=== PATIENT | male | born 1945 ===

== ENCOUNTER 2018-05-22 11:03 | Inpatient (IN) | payer MEDICARE, OTHER ==
[2018-05-22 11:14] VITALS: BMI 29.9
--- NOTE | 2018-05-22 12:05 | ED PDOC ---
Lower Extremity Pain/Injury Time Seen by Provider: 05/22/18 11:21 Chief Complaint (Nursing): Lower Extremity Problem/Injury Chief Complaint (Provider): Right Leg Swelling History Per: Patient History/Exam Limitations: no limitations Onset/Duration Of Symptoms: Other (months) Current Symptoms Are (Timing): Still Present Additional Complaint(s): 72 y/o male with a PMHx of CAD, aortic aneurysm valve repair, a-fib (pacemaker) , and chronic heart failure presenting for evaluation of right leg swelling ongoing for months. Patient states she was sent here by Dr. Verde, who saw him in his office, due to very severe swelling to the right lower extremity and concern for DVT. Patient states that in addition to the swelling, he has had limited exercise capability and is only able to walk short distances before becoming short of breath. He denies any chest pain, fever, or cough. Past Medical History Reviewed: Historical Data, Nursing Documentation, Vital Signs Vital Signs: Last Vital Signs Temp 97.7 F 05/22/18 11:16 Pulse 93 H 05/22/18 11:16 Resp 17 05/22/18 11:16 BP 153/101 H 05/22/18 11:16 Pulse Ox 98 05/22/18 11:16 - Medical History PMH: Atrial Fibrillation, Cardia Arrhythmia, COPD, HTN (aortic valve replacement and pacemaker on warfarin), Peripheral Edema, Sleep Apnea (use CPAP at home) Denies: Chronic Kidney Disease Other PMH: Atrial fibrillation, Chronic heart failure - Surgical History Surgical History: CABG (2010), Hernia Repair, Pacemaker - Family History Family History: States: Unknown Family Hx - Home Medications Home Medications: Ambulatory Orders Medication Instructions Recorded Alprazolam [Xanax] 0.5 mg PO TID PRN 06/27/16 Cyanocobalamin [Vitamin B12 1000 1,000 mcg PO DAILY 06/27/16 mcg Tab] Cyanocobalamin [Vitamin B12 1000 1,000 mcg IM Q30D 06/27/16 mcg/ml Inj] Finasteride 5 mg PO HS 06/27/16 Lactulose [Generlac] 30 ml PO TID 06/27/16 Potassium Chloride [Klor-Con M20] 60 meq PO DAILY 06/27/16 Brimonidine Tartrate/Timolol 1 drop BOTHEYES BID 05/22/18 [Combigan 0.2%-0.5% Eye Drops] Folic Acid 0.4 mg PO BID 05/22/18 Iron,Carbonyl [Iron Chews] 25 mg PO DAILY 05/22/18 Potassium Chloride [Klor-Con M20] 40 meq PO HS 05/22/18 Apixaban [Eliquis] 5 mg PO BID #30 tab 05/30/18 Apixaban [Eliquis] 5 mg PO BID #60 tablet 05/30/18 Bimatoprost [Lumigan] 1 drop EACHEYE HS #1 bottle 05/30/18 Brimonidine 0.2% [Alphagan 0.2% 1 drop OU BID #1 bottle 05/30/18 Opht] Cholecalciferol [Vitamin D 1000 IU] 2,000 unit PO DAILY #30 tab 05/30/18 Finasteride [Proscar] 5 mg PO HS #30 tab 05/30/18 Linaclotide [Linzess] 145 mcg PO PRN PRN #30 capsule 05/30/18 Losartan [Cozaar] 100 mg PO DAILY #30 tab 05/30/18 Metoprolol Succinate 50 mg PO BID #60 tab.er.24h 05/30/18 Minoxidil 5 mg PO BID #60 tab 05/30/18 Montelukast [Singulair] 10 mg PO HS #30 tab 05/30/18 Triamterene/Hydrochlorothiazid 2 each PO DAILY #60 capsule 05/30/18 [Triamterene-Hctz 37.5-25 mg Cp] metFORMIN [glucOPHAGE] 500 mg PO BID #60 tab 05/30/18 - Allergies Allergies/Adverse Reactions: Allergies Allergy/AdvReac Type Severity Reaction Status Date / Time No Known Allergies Allergy Verified 08/29/14 17:03 Review of Systems ROS Statement: Except As Marked, All Systems Reviewed And Found Negative Constitutional: Negative for: Fever Cardiovascular: Negative for: Chest Pain Respiratory: Positive for: SOB with Exertion. Negative for: Cough Musculoskeletal: Positive for: Other (right leg swelling) Physical Exam - Reviewed Nursing Documentation Reviewed: Yes Vital Signs Reviewed: Yes - Physical Exam Appears: Positive for: Non-toxic, No Acute Distress (while sitting) Head Exam: Positive for: ATRAUMATIC, NORMAL INSPECTION, NORMOCEPHALIC Skin: Positive for: Normal Color, Warm, Dry. Negative for: Rash Eye Exam: Positive for: EOMI, Normal appearance, PERRL Neck: Positive for: Normal, Painless ROM, Supple Cardiovascular/Chest: Positive for: Regular Rate, Rhythm (pacemaker) Respiratory: Positive for: Crackles (bilateral) Gastrointestinal/Abdominal: Positive for: Normal Exam, Soft. Negative for: Tenderness Back: Positive for: Normal Inspection. Negative for: L CVA Tenderness, R CVA Tenderness, Vertebral Tenderness Extremity: Positive for: Swelling (RLE markedly more swelling than left, very tense to touch, pitting edema; LLE with pitting edema but not as grossly enlarged as left) Neurologic/Psych: Positive for: Alert, Oriented. Negative for: Motor/Sensory Deficits - Laboratory Results Result Diagrams: 05/30/18 10:06 05/30/18 10:06 - ECG O2 Sat by Pulse Oximetry: 98 (RA) Pulse Ox Interpretation: Normal Medical Decision Making Medical Decision Makin:33 Impression: RLE extremity swelling, r/o DVT vs chronic edema. History of SOB, r/ o CHF. Plan: -EKG -BNP -CMP -Troponin I -CBC w/ differential -CXR -IV Insertion -US Duplex LE -Reevaluation Scribe Attestation: Documented by Roland Camarena, acting as a scribe for Yvonne Escobar MD. Provider Scribe Attestation: All medical record entries made by the Scribe were at my direction and personally dictated by me. I have reviewed the chart and agree that the record accurately reflects my personal performance of the history, physical exam, medical decision making, and the department course for this patient. I have also personally directed, reviewed, and agree with the discharge instructions and disposition. Disposition - Clinical Impression Clinical Impression: SHIPLEY (dyspnea on exertion), Uncontrolled hypertension, Pulmonary embolism - Patient ED Disposition Is Patient to be Admitted: Transfer of Care - Disposition Disposition: Transfer of Care Disposition Time: 17:00 Condition: FAIR Patient Signed Over To: Margot Melo
[2018-05-22 12:11] LABS: BASO % 0.6 % (0.0-2.0); EOS % 0.9 % (0.0-4.0); HEMOGLOBIN 10.1 g/dL (12.0-18.0); LYMPH # 1.1 K/uL (1.0-4.3); LYMPH % 24.1 % (20.0-40.0); MEAN CELL VOLUME 89.6 fl (80.0-94.0); MEAN CORPUSCULAR HEMOGLOBIN 29.4 pg (27.0-31.0); MEAN CORPUSCULAR HGB CONC 32.8 g/dL (33.0-37.0); MONO # 0.5 K/uL (0.0-0.8); MONO % 10.4 % (0.0-10.0); NEUT # 2.9 K/uL (1.8-7.0); NRBC % 0.2 % (0.0-0.0); RBC 3.42 Mil/uL (4.40-5.90); RED CELL DISTRIBUTION WIDTH 16.4 % (11.5-14.5); WHITE BLOOD COUNT 4.5 K/uL (4.8-10.8)
--- NOTE | 2018-05-22 12:24 | RAD ---
Date of service: 05/22/2018 HISTORY: shortness of breath COMPARISON: 11/02/2017 TECHNIQUE: Chest PA and lateral FINDINGS: LUNGS: Similar asymmetric elevation right hemidiaphragm. No interval pulmonary pathology seen PLEURA: No significant pleural effusion identified. No pneumothorax apparent. CARDIOVASCULAR: Mild cardiomegaly. Tortuous/ ectatic thoracic aorta. Duallead pacemaker leads position to unchanged. OSSEOUS STRUCTURES: Midline sternotomy VISUALIZED UPPER ABDOMEN: Normal. OTHER FINDINGS: None. IMPRESSION: No interval pathology noted. Mild cardiomegaly as before Similar asymmetric elevation right hemidiaphragm.
[2018-05-22 12:26] LABS: ALB/GLOB RATIO 1.2 (1.0-2.1); ALBUMIN 4.1 g/dL (3.5-5.0); ALT/SGPT 28 U/L (21-72); AST/SGOT 29 U/L (17-59); BLOOD UREA NITROGEN 17 mg/dl (9-20); GFR AFRICAN-AMERICAN > 60; GFR NON-AFRICAN AMERICAN > 60
[2018-05-22 12:28] LABS: B-TYPE NATRIURETIC PEPTIDE 2630 pg/ml (0-900)
--- NOTE | 2018-05-22 17:18 | ED PDOC ---
- Laboratory Results Result Diagrams: 05/22/18 12:00 05/22/18 12:00 - ECG O2 Sat by Pulse Oximetry: 98 (RA) Medical Decision Making Medical Decision Makin:00 Patient endorsed to me from Dr. Escobar. Pending blood pressure control. Scribe Attestation: Documented by Obie Castrejon acting as a scribe for Margot Melo MD. Provider Scribe Attestation: All medical record entries made by the Scribe were at my direction and personally dictated by me. I have reviewed the chart and agree that the record accurately reflects my personal performance of the history, physical exam, medical decision making, and the department course for this patient. I have also personally directed, reviewed, and agree with the discharge instructions and disposition. Disposition - Clinical Impression Clinical Impression: SHIPLEY (dyspnea on exertion), Uncontrolled hypertension - POA Present On Arrival: None - Disposition Disposition: Admitted as In-Patient Disposition Time: 17:42 Condition: STABLE Forms: [employer] (Vietnamese)
--- NOTE | 2018-05-22 17:51 | US ---
Date of service: 05/22/2018 PROCEDURE: Bilateral lower extremity venous duplex Doppler. HISTORY: leg swelling R>>L. COMPARISON: Comparison made with prior right lower extremity 10/11/15. TECHNIQUE: Bilateral common femoral, superficial femoral, popliteal and posterior tibial veins were evaluated. Flow was assessed with color Doppler, compressibility, assessment of phasic flow and augmentation response. FINDINGS: COMMON FEMORAL VEIN: Right CFV: Unremarkable. Left CFV: Unremarkable. SUPERFICIAL FEMORAL VEIN: Right SFV: Unremarkable. Left SFV: Unremarkable. POPLITEAL VEIN: Right Popliteal: Unremarkable. Left Popliteal: Unremarkable. POSTERIOR TIBIAL VEIN: Right PTV: Unremarkable. Left PTV: Unremarkable. OTHER FINDINGS: Note is also made of a small approximately 4.9 x 2.2 x 3.7 cm fluid collection with internal debris consistent with a popliteal cyst . Small right inguinal lymph node measuring 2.6 x 0.81 cm IMPRESSION: No evidence of deep venous thrombosis seen within the visualized deep veins of the right or left lower extremities. . In addition, there is a right popliteal cyst as above
[2018-05-22] MEDS ORDERED: Sodium Chloride 0.9% 50 ML IV ONE (19:38)
[2018-05-22] MEDS ORDERED: Iodixanol 320 MG/ML 100 ML BOTTLE IV ONE (19:38)
[2018-05-22] MEDS ORDERED: Potassium Chloride 20 mEq ER Tab PO SCH (19:45)
--- NOTE | 2018-05-22 20:25 | CP.PCM.HP ---
<Laura Easton - Last Filed: 05/23/18 05:05> History of Present Illness - History of Present Illness History of Present Illness: 72 y/o M with extensive cardiac history including HTN, CAD, Aortic aneurysm valve repair, Afib ( on warfarin 7.5 mg PO daily), S/P cardiac ablation, Pacemaker, Sleep apnea using CPAP machine at home, presents to ED sent by Ortho specialist for evaluation of RLE edema, and r/o DVT. Patient went to see Ortho, Dr. Verde, because he has been under conservative treatment of Right Knee OA (no good candidate for Knee replacement), and was sent to ED to r/o DVT. In ED patient was complaining of dyspnea on exertion, however states this has been his baseline dyspnea for almost one year, mentioned that he has to stop around 5 times in 1 block because his SOB. Denies chest pain, blurry vision , dizziness, syncope episodes, N/V, diaphoresis or other associated symptoms. Has a close f/u with his engineering inspection assistant ( Dr. Jef Hylton), and reports his engineering inspection assistant did an Echo last month. PCP: Dr. Calix Cardiology: Dr. Jef Hylton ED course -VS: significant for elevated BP Tx: Lasix 40 mg IV once, triamterene 100 mg PO once, clonidine 0.2 mg po once, clonidine 0.1 mg PO once Present on Admission - Present on Admission Any Indicators Present on Admission: Yes History of DVT/PE: No History of Uncontrolled Diabetes: No Urinary Catheter: No Decubitus Ulcer Present: No Review of Systems - Review of Systems All systems: reviewed and no additional remarkable complaints except (as per HPI ) Past Patient History - Past Medical History & Family History Past Medical History?: Yes - Past Social History Smoking Status: Former Smoker - CARDIAC Hx Atrial Fibrillation: Yes Hx Cardia Arrhythmia: Yes Hx Hypertension: Yes (aortic valve replacement and pacemaker on warfarin) Hx Pacemaker: Yes Hx Peripheral Edema: Yes - PULMONARY Hx Chronic Obstructive Pulmonary Disease (COPD): Yes Hx Sleep Apnea: Yes (use CPAP at home) - NEUROLOGICAL Hx Neurological Disorder: No - HEENT Hx Cataracts: Yes - RENAL Hx Chronic Kidney Disease: No - ENDOCRINE/METABOLIC Hx Endocrine Disorders: No - HEMATOLOGICAL/ONCOLOGICAL Hx Blood Disorders: No - INTEGUMENTARY Hx Dermatological Problems: No - MUSCULOSKELETAL/RHEUMATOLOGICAL Hx Musculoskeletal Disorders: No Hx Falls: No - GASTROINTESTINAL Hx Gastrointestinal Disorders: No - GENITOURINARY/GYNECOLOGICAL Hx Prostate Problems: Yes (BPH) - PSYCHIATRIC Hx Psychophysiologic Disorder: No Hx Substance Use: No - SURGICAL HISTORY Hx Coronary Artery Bypass Graft: Yes (2010) - ANESTHESIA Hx Anesthesia: Yes Hx Anesthesia Reactions: No Hx Malignant Hyperthermia: No Meds Allergies/Adverse Reactions: Allergies Allergy/AdvReac Type Severity Reaction Status Date / Time No Known Allergies Allergy Verified 08/29/14 17:03 Physical Exam - Constitutional Appears: Non-toxic, No Acute Distress - Head Exam Head Exam: ATRAUMATIC, NORMOCEPHALIC - Eye Exam Eye Exam: EOMI, Normal appearance. absent: Conjunctival injection Pupil Exam: PERRL - ENT Exam ENT Exam: Mucous Membranes Moist - Respiratory Exam Respiratory Exam: Decreased Breath Sounds (bilateral), NORMAL BREATHING PATTERN. absent: Rales, Rhonchi, Wheezes - Cardiovascular Exam Cardiovascular Exam: Irregular Rhythm, +S1, +S2 - GI/Abdominal Exam GI & Abdominal Exam: Normal Bowel Sounds, Soft. absent: Distended, Guarding, Rebound, Rigid, Tenderness - Extremities Exam Extremities exam: Positive for: pedal edema (Right >left). Negative for: calf tenderness - Back Exam Back exam: NORMAL INSPECTION. absent: CVA tenderness (L), CVA tenderness (R) - Neurological Exam Neurological exam: Alert, Oriented x3 - Skin Skin Exam: Dry, Intact, Normal Color, Warm Results - Vital Signs Recent Vital Signs: Last Vital Signs Temp 97.7 F 05/22/18 11:16 Pulse 79 05/22/18 19:27 Resp 20 05/22/18 19:27 BP 134/88 05/22/18 19:27 Pulse Ox 100 05/22/18 19:27 - Labs Result Diagrams: 05/22/18 12:00 05/22/18 12:00 Labs: Laboratory Results - last 24 hr 05/22/18 05/22/18 12:00 12:00 WBC 4.5 L RBC 3.42 L Hgb 10.1 L Hct 30.6 L MCV 89.6 MCH 29.4 MCHC 32.8 L RDW 16.4 H Plt Count 134 MPV 10.0 Neut % (Auto) 64.0 Lymph % (Auto) 24.1 [place] % (Auto) 10.4 H Eos % (Auto) 0.9 Baso % (Auto) 0.6 Neut # (Auto) 2.9 Lymph # (Auto) 1.1 [place] # (Auto) 0.5 Eos # (Auto) 0.0 Baso # (Auto) 0.0 Sodium 143 Potassium 4.1 Chloride 101 Carbon Dioxide 31 H Anion Gap 15 BUN 17 Creatinine 0.9 Est GFR ( Amer) > 60 Est GFR (Non-Af Amer) > 60 Random Glucose 140 H Calcium 9.0 Total Bilirubin 1.2 AST 29 ALT 28 Alkaline Phosphatase 106 Troponin I < 0.0120 NT-Pro-B Natriuret Pep 2630 H Total Protein 7.7 Albumin 4.1 Globulin 3.6 Albumin/Globulin Ratio 1.2 Assessment & Plan - Assessment and Plan (Free Text) Assessment: 72 y/o M with extensive cardiac history including HTN, CAD, Aortic aneurysm valve repair, Afib ( on warfarin 7.5 mg PO daily), S/P cardiac ablation, Pacemaker, Sleep apnea admitted with SHIPLEY to r/o ACS and/or PE. Plan: Dyspnea -Telemetry -cont monitoring and evaluation advisor -r/o ACS, PE -EKG: sinus rhythm with PVC -f/u EKG in AM -troponin I x 1 neg -f/u troponin I x 2 -CXR reported as mild cardiomegaly -Chest CT angio done in ER, f/u results -Bilateral LE Dupplex US reported as no evidence of DVT -call Pulmunology and/or Cardiology if needed. Recommendations will be appreciated -patient reports he had an "Echo" ordered by his Cardio 1 month ago. States he is very adherent with medications and Cardio's appointments. A fib -controlled -c/w home meds -on warfarin 7.5 mg PO daily -f/u INR HTN -uncontrolled on admission, but improving -S/P Lasix 40 mg IV once, triamterene 100 mg PO once, clonidine 0.2 mg po once, clonidine 0.1 mg PO once in ER -will resume home meds -unclear current medication regimen at home. We need to confirm with his pharmacy. [facility] at [address] [place] [address]. As per patient he takes Diovan 160 mg BID, Metoprolol. But unclear if he takes Hctz. Reports Triamterene was discontinued by Cardio. Takes Potasium 40 meq BID? -f/u BP DVT prophylaxis on warfarin f/u INR SCDs - Date & Time Date: 05/22/18 Time: 18:00 <Juliocesar Calix - Last Filed: 05/24/18 06:55> Results - Vital Signs Recent Vital Signs: Last Vital Signs Temp 97.7 F 05/24/18 05:10 Pulse 85 05/24/18 05:10 Resp 18 05/24/18 05:10 BP 153/89 H 05/24/18 05:10 Pulse Ox 96 05/24/18 05:10 - Labs Result Diagrams: 05/24/18 05:25 05/24/18 05:25 Labs: Laboratory Results - last 24 hr 05/23/18 05/23/18 05/23/18 08:00 14:04 20:09 WBC RBC Hgb Hct MCV MCH MCHC RDW Plt Count APTT 163.3 H* D 92.9 H D 69.7 H D Sodium Potassium Chloride Carbon Dioxide Anion Gap BUN Creatinine Est GFR ( Amer) Est GFR (Non-Af Amer) Random Glucose Calcium Total Bilirubin AST ALT Alkaline Phosphatase Total Protein Albumin Globulin Albumin/Globulin Ratio 05/24/18 05/24/18 05/24/18 03:00 05:25 05:25 WBC 4.2 L RBC 3.50 L Hgb 10.3 L Hct 31.7 L MCV 90.5 MCH 29.5 MCHC 32.6 L RDW 16.6 H Plt Count 134 APTT 71.5 H Sodium 141 Potassium 3.2 L Chloride 98 Carbon Dioxide 33 H Anion Gap 13 BUN 12 Creatinine 0.8 Est GFR ( Amer) > 60 Est GFR (Non-Af Amer) > 60 Random Glucose 89 Calcium 8.7 Total Bilirubin 1.1 AST 31 ALT 28 Alkaline Phosphatase 104 Total Protein 7.5 Albumin 3.9 Globulin 3.6 Albumin/Globulin Ratio 1.1 Attending/Attestation - Attestation I have personally seen and examined this patient.: Yes I have fully participated in the care of the patient.: Yes I have reviewed all pertinent clinical information: Yes
[2018-05-22 21:16] LABS: INR 3.2 (0.9-1.2); PARTIAL THROMBOPLASTIN TIME 44.2 Seconds (25.6-37.1); PROTHROMBIN TIME 36.5 Seconds (9.8-13.1)
[2018-05-22] MEDS ORDERED: Phytonadione 10 mg/ml Inj (Adult) IVPB STA (21:34)
[2018-05-22] MEDS ORDERED: Phytonadione 10 MG in Sodium Chloride 0.9% 50 ML IV ONE (22:00)
[2018-05-22] MEDS: Latanoprost 0.005% Opht SOUTION OU SCH (23:22)
[2018-05-22] MEDS: Brimonidine 0.2% 50 DROP/5 ML BOTTLE OU SCH (23:26)
[2018-05-23 05:43] LABS: BASO % 0.8 % (0.0-2.0); EOS % 1.4 % (0.0-4.0); HEMOGLOBIN 9.1 g/dL (12.0-18.0); LYMPH # 1.1 K/uL (1.0-4.3); LYMPH % 29.9 % (20.0-40.0); MEAN CELL VOLUME 88.9 fl (80.0-94.0); MEAN CORPUSCULAR HEMOGLOBIN 29.7 pg (27.0-31.0); MEAN CORPUSCULAR HGB CONC 33.4 g/dL (33.0-37.0); MONO # 0.4 K/uL (0.0-0.8); MONO % 10.4 % (0.0-10.0); NEUT # 2.1 K/uL (1.8-7.0); NEUT % 57.5 % (50.0-75.0); RBC 3.06 Mil/uL (4.40-5.90); RED CELL DISTRIBUTION WIDTH 16.3 % (11.5-14.5); WHITE BLOOD COUNT 3.6 K/uL (4.8-10.8)
[2018-05-23 05:56] LABS: BLOOD UREA NITROGEN 14 mg/dl (9-20); CALCIUM 8.1 mg/dL (8.4-10.2); GFR AFRICAN-AMERICAN > 60; GFR NON-AFRICAN AMERICAN > 60
[2018-05-23 06:11] LABS: INR 2.6 (0.9-1.2); PROTHROMBIN TIME 28.8 Seconds (9.8-13.1)
[2018-05-23] MEDS ORDERED: HYDROCHLOROTHIAZID PO SCH (09:00)
[2018-05-23] MEDS ORDERED: Lactulose 10 gm/15 ml Syrup PO SCH (09:00)
[2018-05-23] MEDS ORDERED: Potassium Chloride 20 mEq ER Tab PO SCH ×2 (09:00→22:00)
[2018-05-23] MEDS ORDERED: FOLIC ACID 0.4 MG PO SCH (09:00)
[2018-05-23] MEDS ORDERED: IRON CARBONYL PO SCH (09:00)
[2018-05-23] MEDS ORDERED: Cholecalciferol 1,000 INTLU TAB PO SCH (09:00)
[2018-05-23] MEDS ORDERED: TRIAMTERENE PO SCH (09:00)
[2018-05-23] MEDS: Brimonidine 0.2% 50 DROP/5 ML BOTTLE OU SCH ×2 (09:30→17:51)
[2018-05-23] MEDS: hydroCHLOROthiazide-Triamterene 25 mg-37.5 mg Cap UD PO SCH (09:31)
[2018-05-23] MEDS: Cholecalciferol 1,000 INTLU TAB PO SCH (09:31)
[2018-05-23] MEDS: Metoprolol Succinate 50 mg XL Tab PO SCH ×2 (09:33→18:06)
--- NOTE | 2018-05-23 09:42 | CP.PCM.CON ---
History of Present Illness - History of Present Illness History of Present Illness: Pt is a 72 yo male with pmh of HTN, Cad, Aortic aneurysm valve repair, Afib ( on warfarin 7.5 mg Po daily), cardaic ablation, pacemaker, sleep apnea using CPAP machine at home was sent to ED from is ortho specialist due to swelling of Right lower leg to R/O PE. Pt state that he normally get edema bilateral leg, Right more than left and its been happening for more than a year. He also state that he get SOB and dyspnea every time he walk, and need to stop 5 time before in 1 block walk. Pt is a former smoker quiet 30 years ago. Pt denies having fever, vomit, nausea, headache, dizziness, chest pain, abd pain, diarrhea, polyuria, dysuria. on the ED pt was complainin of dyspnea but state that this is his baseline. B/L edema was notice mostly on the Right leg. Pt had no fever, chill, blurry vision , syncope episode, N/V, diaphoresis or other associated symptoms. PCP: Dr. Calix Pt seen and examined on bed site with pt was laying comfortable in bed with no acute distress. Pt denies feeling SOB but he state he only get it when he walk and he havent walked anywere since he got to the hospital. Denies any fever, headache, n/v chest pain, abdominal pain, any lump, diarrhea, constipation or any other symptoms. Vitals : Vitals WNL CT: Right lower PE noticed, 6mm nodle noticed on lower branch of R lung, Pulm HTN dubler: no acute finding chest Xray: no new finding except for cardiomegaly which have been seen in before. Review of Systems - Review of Systems All systems: reviewed and no additional remarkable complaints except - Constitutional Constitutional: Sleep Apnea - Cardiovascular Cardiovascular: Dyspnea, Dyspnea on Exertion. absent: Chest Pain, Syncope - Respiratory Respiratory: Dyspnea. absent: Hemoptysis, Wheezing, Chest Congestion - Gastrointestinal Gastrointestinal: absent: Change in Stool Character, Diarrhea - Genitourinary Genitourinary: absent: Dysuria, Flank Pain, Hematuria - Musculoskeletal Musculoskeletal: Joint Swelling. absent: Numbness, Tingling Past Patient History - Past Medical History & Family History Past Medical History?: Yes - Past Social History Smoking Status: Former Smoker - CARDIAC Hx Atrial Fibrillation: Yes Hx Cardia Arrhythmia: Yes Hx Hypertension: Yes (aortic valve replacement and pacemaker on warfarin) Hx Pacemaker: Yes Hx Peripheral Edema: Yes - PULMONARY Hx Chronic Obstructive Pulmonary Disease (COPD): Yes Hx Sleep Apnea: Yes (use CPAP at home) - NEUROLOGICAL Hx Neurological Disorder: No - HEENT Hx Cataracts: Yes - RENAL Hx Chronic Kidney Disease: No - ENDOCRINE/METABOLIC Hx Endocrine Disorders: No - HEMATOLOGICAL/ONCOLOGICAL Hx Blood Disorders: No - INTEGUMENTARY Hx Dermatological Problems: No - MUSCULOSKELETAL/RHEUMATOLOGICAL Hx Musculoskeletal Disorders: No Hx Falls: No - GASTROINTESTINAL Hx Gastrointestinal Disorders: No - GENITOURINARY/GYNECOLOGICAL Hx Prostate Problems: Yes (BPH) - PSYCHIATRIC Hx Psychophysiologic Disorder: No Hx Substance Use: No - SURGICAL HISTORY Hx Coronary Artery Bypass Graft: Yes (2010) - ANESTHESIA Hx Anesthesia: Yes Hx Anesthesia Reactions: No Hx Malignant Hyperthermia: No Meds Allergies/Adverse Reactions: Allergies Allergy/AdvReac Type Severity Reaction Status Date / Time No Known Allergies Allergy Verified 08/29/14 17:03 - Medications Medications: Current Medications Alprazolam (Xanax) 0.5 mg PO TID PRN PRN Reason: Anxiety Brimonidine Tartrate (Alphagan 0.2% Opht) 1 drop OU BID [facility] Last Admin: 05/23/18 09:30 Dose: 1 drop Cholecalciferol (Vitamin D) 2,000 intlu PO DAILY [facility] Last Admin: 05/23/18 09:31 Dose: 2,000 intlu Finasteride (Proscar) 5 mg PO HS [facility] Last Admin: 05/22/18 23:26 Dose: 5 mg Home Med (Linaclotide [Linzess]) 145 mcg PO DAILY PRN PRN Reason: Constipation Home Med (Folic Acid [Folic Acid]) 0.4 mg PO BID [facility] Home Med (Iron,Carbonyl [Iron Chews]) 25 mg PO DAILY [facility] Heparin Sodium/Dextrose (Heparin 25,000 Units/250ml In D5w) 25,000 units in 250 mls @ 18 mls/hr IV .[id number] [facility]; Per Protocol PRN Reason: Protocol Last Admin: 05/23/18 00:00 Dose: 18 mls/hr Lactulose (Enulose) 20 gm PO BID [facility] Last Admin: 05/23/18 09:32 Dose: Not Given Latanoprost (Xalatan Opht) [address] [facility] Last Admin: 05/22/18 23:22 Dose: 1 drop Metoprolol Succinate (Toprol Xl) 50 mg PO BID [facility] Last Admin: 05/23/18 09:33 Dose: 50 mg Minoxidil (Minoxidil) 5 mg PO BID [facility] Last Admin: 05/23/18 09:33 Dose: 5 mg Montelukast Sodium (Singulair) 10 mg PO HS [facility] Potassium Chloride (K-Dur 20 Meq Er Tab) 40 meq PO HS [facility] Timolol Maleate (Timoptic 0.5% Ophth Soln) 1 drop OU BID [facility] Last Admin: 05/23/18 09:33 Dose: 1 tona Triamterene/HCTZ (Dyazide 25 Mg-37.5 Mg) 2 cap PO DAILY [facility] Last Admin: 05/23/18 09:31 Dose: 2 cap Valsartan (Diovan) 160 mg PO BID [facility] Last Admin: 05/23/18 09:30 Dose: 160 mg Physical Exam - Constitutional Appears: Well, Non-toxic, No Acute Distress - Head Exam Head Exam: ATRAUMATIC, NORMAL INSPECTION, NORMOCEPHALIC - Eye Exam Eye Exam: EOMI, Normal appearance, PERRL Pupil Exam: NORMAL ACCOMODATION, PERRL - ENT Exam ENT Exam: Mucous Membranes Moist, Normal Exam - Neck Exam Neck exam: Positive for: Normal Inspection - Respiratory Exam Respiratory Exam: Decreased Breath Sounds, NORMAL BREATHING PATTERN. absent: Rales, Rhonchi, Wheezes - Cardiovascular Exam Cardiovascular Exam: REGULAR RHYTHM, +S1, +S2 - GI/Abdominal Exam GI & Abdominal Exam: Normal Bowel Sounds - Extremities Exam Extremities exam: Positive for: pedal edema. Negative for: tenderness - Back Exam Back exam: NORMAL INSPECTION - Neurological Exam Neurological exam: Alert, Oriented x3 - Psychiatric Exam Psychiatric exam: Normal Affect, Normal Mood - Skin Skin Exam: Dry, Intact, Normal Color, Warm Results - Vital Signs Recent Vital Signs: Last Vital Signs Temp 97.4 F L 05/23/18 08:18 Pulse 82 05/23/18 09:33 Resp 20 05/23/18 08:18 BP 132/82 05/23/18 09:33 Pulse Ox 97 05/23/18 08:18 - Labs Result Diagrams: 05/23/18 05:00 05/23/18 05:00 Labs: Laboratory Results - last 24 hr 05/22/18 05/22/18 05/22/18 12:00 12:00 20:50 WBC 4.5 L RBC 3.42 L Hgb 10.1 L Hct 30.6 L MCV 89.6 MCH 29.4 MCHC 32.8 L RDW 16.4 H Plt Count 134 MPV 10.0 Neut % (Auto) 64.0 Lymph % (Auto) 24.1 Dent % (Auto) 10.4 H Eos % (Auto) 0.9 Baso % (Auto) 0.6 Neut # (Auto) 2.9 Lymph # (Auto) 1.1 Dent # (Auto) 0.5 Eos # (Auto) 0.0 Baso # (Auto) 0.0 PT 36.5 H INR 3.2 H APTT 44.2 H Sodium 143 Potassium 4.1 Chloride 101 Carbon Dioxide 31 H Anion Gap 15 BUN 17 Creatinine 0.9 Est GFR ( Amer) > 60 Est GFR (Non-Af Amer) > 60 Random Glucose 140 H Calcium 9.0 Total Bilirubin 1.2 AST 29 ALT 28 Alkaline Phosphatase 106 Troponin I < 0.0120 NT-Pro-B Natriuret Pep 2630 H Total Protein 7.7 Albumin 4.1 Globulin 3.6 Albumin/Globulin Ratio 1.2 05/23/18 05/23/18 05/23/18 05:00 05:00 05:00 WBC 3.6 L RBC 3.06 L Hgb 9.1 L Hct 27.2 L MCV 88.9 MCH 29.7 MCHC 33.4 RDW 16.3 H Plt Count 116 L MPV 10.0 Neut % (Auto) 57.5 Lymph % (Auto) 29.9 Dent % (Auto) 10.4 H Eos % (Auto) 1.4 Baso % (Auto) 0.8 Neut # (Auto) 2.1 Lymph # (Auto) 1.1 Dent # (Auto) 0.4 Eos # (Auto) 0.0 Baso # (Auto) 0.0 PT 28.8 H D INR 2.6 H D APTT Sodium 141 Potassium 3.3 L Chloride 102 Carbon Dioxide 31 H Anion Gap 11 BUN 14 Creatinine 0.7 L Est GFR ( Amer) > 60 Est GFR (Non-Af Amer) > 60 Random Glucose 85 Calcium 8.1 L Total Bilirubin AST ALT Alkaline Phosphatase Troponin I < 0.0120 NT-Pro-B Natriuret Pep Total Protein Albumin Globulin Albumin/Globulin Ratio 05/23/18 08:00 WBC RBC Hgb Hct MCV MCH MCHC RDW Plt Count MPV Neut % (Auto) Lymph % (Auto) Dent % (Auto) Eos % (Auto) Baso % (Auto) Neut # (Auto) Lymph # (Auto) Dent # (Auto) Eos # (Auto) Baso # (Auto) PT INR APTT 163.3 H* D Sodium Potassium Chloride Carbon Dioxide Anion Gap BUN Creatinine Est GFR ( Amer) Est GFR (Non-Af Amer) Random Glucose Calcium Total Bilirubin AST ALT Alkaline Phosphatase Troponin I NT-Pro-B Natriuret Pep Total Protein Albumin Globulin Albumin/Globulin Ratio Assessment & Plan (1) Pulmonary embolism Assessment and Plan: Pt is 72 yo male with positive finidng of Right lower lube Embolism Plan Continue Heparin F/U vitals Status: Acute (2) COPD (chronic obstructive pulmonary disease) Assessment and Plan: Pt is a 72 yo male with PMH of chronic smoke use. Pt Physical exam :diminished lung sound and prolonged expiratory phase PLan Duoneb INh PRN Status: Chronic Priority: Low (3) A-fib Assessment and Plan: Pt is a 72 yo m with A-fib on warfarin 7.[address] diagnosed [address] PE with CT scan Plan Continue Heparin at the moment Would recommend Hemeonc consult Status: Chronic
[2018-05-23] MEDS ORDERED: Albuterol-Ipratrop 3 mg / 0.5 (3 ml) UD INH PRN (11:00)
--- NOTE | 2018-05-23 11:16 | CP.PCM.CON ---
History of Present Illness - History of Present Illness History of Present Illness: THE PATIENT IS A 72 YEAR OLD MALE WHO HAS A HISTORY OF CAD, ATRIAL FIBRILLATION WITH AN ABLATION PROCEDURE, AORTIC ANEURYSM REPAIR INCLUDING AN AVR, SSS WITH A DUAL CHAMBER PACEMAKER, COPD, TYPE 2 DM, ARTHRITIS AND ANEMIA. HE WAS [facility]ICE YESTER[facility] FOR KNEE OA AND HE WAS NOTED TO HAVE SWELLING OT THE RLE SO HE WAS SENT TO THE ER FOR EVALUATION. HE ALSO HAS CHRONIC SEVERE SHIPLEY. LOWER EXTREMITY VENOUS DOPPLER STUDIES WERE NEGATIVE FOR DVT. HE HAD A CHEST CT THAT HAS NOT BEEN OFFICIALLY READ YET BUT HIS NURSE TOLD ME THAT IT WAS VERBALLY READ A PE AND HE IS ON IV HEPARIN. HE DENIES CHEST PAIN. I WAS ASKED TO SEE HIM HIS COURTROOM REPORTER DOESN'T COME TO THIS HOSPITAL. HIS BLOOD PRESSURE WAS ELEVATED IN THE ER AND WITH TREATMENT IT IS NOW BETTER CONTROLLED. Past Patient History - Past Medical History & Family History Past Medical History?: Yes - Past Social History Smoking Status: Former Smoker - CARDIAC Hx Atrial Fibrillation: Yes Hx Cardia Arrhythmia: Yes Hx Hypertension: Yes (aortic valve replacement and pacemaker on warfarin) Hx Pacemaker: Yes Hx Peripheral Edema: Yes - PULMONARY Hx Chronic Obstructive Pulmonary Disease (COPD): Yes Hx Sleep Apnea: Yes (use CPAP at home) - NEUROLOGICAL Hx Neurological Disorder: No - HEENT Hx Cataracts: Yes - RENAL Hx Chronic Kidney Disease: No - ENDOCRINE/METABOLIC Hx Endocrine Disorders: No - HEMATOLOGICAL/ONCOLOGICAL Hx Blood Disorders: No - INTEGUMENTARY Hx Dermatological Problems: No - MUSCULOSKELETAL/RHEUMATOLOGICAL Hx Musculoskeletal Disorders: No Hx Falls: No - GASTROINTESTINAL Hx Gastrointestinal Disorders: No - GENITOURINARY/GYNECOLOGICAL Hx Prostate Problems: Yes (BPH) - PSYCHIATRIC Hx Psychophysiologic Disorder: No Hx Substance Use: No - SURGICAL HISTORY Hx Coronary Artery Bypass Graft: Yes (2010) - ANESTHESIA Hx Anesthesia: Yes Hx Anesthesia Reactions: No Hx Malignant Hyperthermia: No Meds Allergies/Adverse Reactions: Allergies Allergy/AdvReac Type Severity Reaction Status Date / Time No Known Allergies Allergy Verified 08/29/14 17:03 - Medications Medications: Current Medications Albuterol/Ipratropium (Duoneb 3 Mg/0.5 Mg (3 Ml) Ud) 3 ml INH RQ4 PRN PRN Reason: Shortness of Breath Alprazolam (Xanax) 0.5 mg PO TID PRN PRN Reason: Anxiety Brimonidine Tartrate (Alphagan 0.2% Opht) 1 drop OU BID [facility] Last Admin: 05/23/18 09:30 Dose: 1 drop Cholecalciferol (Vitamin D) 2,000 intlu PO DAILY [facility] Last Admin: 05/23/18 09:31 Dose: 2,000 intlu Finasteride (Proscar) 5 mg PO HS [facility] Last Admin: 05/22/18 23:26 Dose: 5 mg Home Med (Linaclotide [Linzess]) 145 mcg PO DAILY PRN PRN Reason: Constipation Home Med (Folic Acid [Folic Acid]) 0.4 mg PO BID [facility] Home Med (Iron,Carbonyl [Iron Chews]) 25 mg PO DAILY [facility] Heparin Sodium/Dextrose (Heparin 25,000 Units/250ml In D5w) 25,000 units in 250 mls @ 18 mls/hr IV .[id number] [facility]; Per Protocol PRN Reason: Protocol Last Admin: 05/23/18 00:00 Dose: 18 mls/hr Lactulose (Enulose) 20 gm PO BID [facility] Last Admin: 05/23/18 09:32 Dose: Not Given Latanoprost (Xalatan Opht) 1 drop OU HS [facility] Last Admin: 05/22/18 23:22 Dose: 1 drop Metoprolol Succinate (Toprol Xl) 50 mg PO BID [facility] Last Admin: 05/23/18 09:33 Dose: 50 mg Minoxidil (Minoxidil) 5 mg PO BID [facility] Last Admin: 05/23/18 09:33 Dose: 5 mg Montelukast Sodium (Singulair) 10 mg PO [facility] Potassium Chloride (K-Dur 20 Meq Er Tab) 40 meq PO HS [facility] Timolol Maleate (Timoptic 0.5% Ophth Soln) 1 drop OU BID [facility] Last Admin: 05/23/18 09:33 Dose: 1 tona Triamterene/HCTZ (Dyazide 25 Mg-37.5 Mg) 2 cap PO DAILY [facility] Last Admin: 05/23/18 09:31 Dose: 2 cap Valsartan (Diovan) 160 mg PO BID [facility] Last Admin: 05/23/18 09:30 Dose: 160 mg Physical Exam - Respiratory Exam Respiratory Exam: Clear to Auscultation Bilateral - Cardiovascular Exam Cardiovascular Exam: REGULAR RHYTHM, +S1, +S2 - Extremities Exam Additional comments: BILAT LE EDEMA, R>L - Additional Findings Additional findings: EKG PROBABLY SINUS RHYTHM, RBBB CXR CHRONIC CHANGES, NO CONGESTION, DUAL CHAMBER PACEMAKER TROPONINS NORMAL PROBNP 2630 K+ 3.3 BILAT LE VENOUS DOPPLER STUDIES NEGATIVE FOR DVT, RIGHT POPLITEAL CYST Results - Vital Signs Recent Vital Signs: Last Vital Signs Temp 97.4 F L 05/23/18 08:18 Pulse 82 05/23/18 09:33 Resp 20 05/23/18 08:18 BP 132/82 05/23/18 09:33 Pulse Ox 97 05/23/18 08:18 - Labs Result Diagrams: 05/23/18 05:00 05/23/18 05:00 Labs: Laboratory Results - last 24 hr 05/22/18 05/22/18 05/22/18 12:00 12:00 20:50 WBC 4.5 L RBC 3.42 L Hgb 10.1 L Hct 30.6 L MCV 89.6 MCH 29.4 MCHC 32.8 L RDW 16.4 H Plt Count 134 MPV 10.0 Neut % (Auto) 64.0 Lymph % (Auto) 24.1 Waldo % (Auto) 10.4 H Eos % (Auto) 0.9 Baso % (Auto) 0.6 Neut # (Auto) 2.9 Lymph # (Auto) 1.1 Waldo # (Auto) 0.5 Eos # (Auto) 0.0 Baso # (Auto) 0.0 PT 36.5 H INR 3.2 H APTT 44.2 H Sodium 143 Potassium 4.1 Chloride 101 Carbon Dioxide 31 H Anion Gap 15 BUN 17 Creatinine 0.9 Est GFR ( Amer) > 60 Est GFR (Non-Af Amer) > 60 Random Glucose 140 H Calcium 9.0 Total Bilirubin 1.2 AST 29 ALT 28 Alkaline Phosphatase 106 Troponin I < 0.0120 NT-Pro-B Natriuret Pep 2630 H Total Protein 7.7 Albumin 4.1 Globulin 3.6 Albumin/Globulin Ratio 1.2 05/23/18 05/23/18 05/23/18 05:00 05:00 05:00 WBC 3.6 L RBC 3.06 L Hgb 9.1 L Hct 27.2 L MCV 88.9 MCH 29.7 MCHC 33.4 RDW 16.3 H Plt Count 116 L MPV 10.0 Neut % (Auto) 57.5 Lymph % (Auto) 29.9 Waldo % (Auto) 10.4 H Eos % (Auto) 1.4 Baso % (Auto) 0.8 Neut # (Auto) 2.1 Lymph # (Auto) 1.1 Waldo # (Auto) 0.4 Eos # (Auto) 0.0 Baso # (Auto) 0.0 PT 28.8 H D INR 2.6 H D APTT Sodium 141 Potassium 3.3 L Chloride 102 Carbon Dioxide 31 H Anion Gap 11 BUN 14 Creatinine 0.7 L Est GFR ( Amer) > 60 Est GFR (Non-Af Amer) > 60 Random Glucose 85 Calcium 8.1 L Total Bilirubin AST ALT Alkaline Phosphatase Troponin I < 0.0120 NT-Pro-B Natriuret Pep Total Protein Albumin Globulin Albumin/Globulin Ratio 05/23/18 08:00 WBC RBC Hgb Hct MCV MCH MCHC RDW Plt Count MPV Neut % (Auto) Lymph % (Auto) Waldo % (Auto) Eos % (Auto) Baso % (Auto) Neut # (Auto) Lymph # (Auto) Waldo # (Auto) Eos # (Auto) Baso # (Auto) PT INR APTT 163.3 H* D Sodium Potassium Chloride Carbon Dioxide Anion Gap BUN Creatinine Est GFR ( Amer) Est GFR (Non-Af Amer) Random Glucose Calcium Total Bilirubin AST ALT Alkaline Phosphatase Troponin I NT-Pro-B Natriuret Pep Total Protein Albumin Globulin Albumin/Globulin Ratio Assessment & Plan - Assessment and Plan (Free Text) Assessment: PE BY VERBAL COMMUNICATION. CT NOT OFFICIALLY READ YET. CAD AORTIC ANEURYS REPAIR WITH AVR SSS WITH ATRIAL FIBRILLATION HISTORY AND PACEMAKER COPD Plan: THE PATIENT WAS ADMITTED TO THE PATIENT IS ON IV HEPARIN CONTINUE METOPROLOL, DIOVAN, MINOXIDIL, DYAZIDE AND KCL
--- NOTE | 2018-05-23 11:21 | CT ---
Date of service: 05/22/2018 PROCEDURE: CT Chest with contrast (Pulmonary Angiogram) HISTORY: SOB, RLE swelling COMPARISON: Comparison is made to the previous CTA of the chest and abdomen dated 01/13/2016 TECHNIQUE: Axial computed tomography images were obtained of the chest in the pulmonary arterial phase of enhancement. Coronal and sagittal reformatted images were created and reviewed. Intravenous contrast dose: 95 mA Visipaque 320. Radiation dose: Total exam DLP = 511.28 mGy-cm. This CT exam was performed using one or more of the following dose reduction techniques: Automated exposure control, adjustment of the mA and/or kV according to patient size, and/or use of iterative reconstruction technique. FINDINGS: PULMONARY ARTERIES: There is filling defect at the right lower lobe pulmonary artery suggestive of pulmonary embolus. No evidence of other filling defects in the pulmonary arteries. The main pulmonary artery is mildly to moderately enlarged suggestive of pulmonary hypertension. AORTA: The patient is status post ascending aortic aneurysm repair. The aortic arch is mildly ectatic and tortuous. LUNGS: There is linear shaped consolidation at the right lung base may represent atelectasis. The possibility of pneumonia or neoplasm is less likely. Mild elevation of the right hemidiaphragm is noted. There is 5 millimeter nodule at the right lung lower lobe not clearly seen in the previous exam. Diffuse mild ground-glass opacities in the lungs may represent pulmonary congestion. PLEURAL SPACES: There is trace right pleural effusion. HEART: The heart is moderately enlarged. The IV contrast reflux in the liver as well as intraventricular septal straightening noted suggestive of right heart dysfunction LYMPH NODES: No evidence of significant lymphadenopathy in the chest. BONES, CHEST WALL: Unremarkable. No fracture or destructive lesion OTHER FINDINGS: Unremarkable. IMPRESSION: Acute pulmonary embolism in the right lower lobe pulmonary artery. Right lung base consolidation may represent atelectasis. Cardiomegaly. Findings suggestive of right heart dysfunction. 5 millimeter right lower lobe pulmonary nodule. Preliminary report was submitted by [facility].
--- NOTE | 2018-05-23 11:38 | CP.PCM.CON ---
History of Present Illness - History of Present Illness History of Present Illness: 72 year old male with a history of COPD, DM, CAD, afib on coumadin, SSS with pacemaker, presenting with lower extremity swelling, found to have a PE while therapeutic on coumadin. The patient reports he was seeing his orthopedist for knee pain related to osteoarthritis who sent him to the hospital for DVT evaluation. Lower extremity venous dopplers were negative for DVT but a CT angio of the chest revealed a pulmonary embolism. He does have dyspnea with exertion which he notes has been the same for over a year. He denies chest pain and hemoptysis. Past medical history: COPD, DM, CAD, afib on coumadin, SSS with pacemaker, OA Past surgical history: Past Patient History - Past Medical History & Family History Past Medical History?: Yes - Past Social History Smoking Status: Former Smoker - CARDIAC Hx Atrial Fibrillation: Yes Hx Cardia Arrhythmia: Yes Hx Hypertension: Yes (aortic valve replacement and pacemaker on warfarin) Hx Pacemaker: Yes Hx Peripheral Edema: Yes - PULMONARY Hx Chronic Obstructive Pulmonary Disease (COPD): Yes Hx Sleep Apnea: Yes (use CPAP at home) - NEUROLOGICAL Hx Neurological Disorder: No - HEENT Hx Cataracts: Yes - RENAL Hx Chronic Kidney Disease: No - ENDOCRINE/METABOLIC Hx Endocrine Disorders: No - HEMATOLOGICAL/ONCOLOGICAL Hx Blood Disorders: No - INTEGUMENTARY Hx Dermatological Problems: No - MUSCULOSKELETAL/RHEUMATOLOGICAL Hx Musculoskeletal Disorders: No Hx Falls: No - GASTROINTESTINAL Hx Gastrointestinal Disorders: No - GENITOURINARY/GYNECOLOGICAL Hx Prostate Problems: Yes (BPH) - PSYCHIATRIC Hx Psychophysiologic Disorder: No Hx Substance Use: No - SURGICAL HISTORY Hx Coronary Artery Bypass Graft: Yes (2010) - ANESTHESIA Hx Anesthesia: Yes Hx Anesthesia Reactions: No Hx Malignant Hyperthermia: No Meds Allergies/Adverse Reactions: Allergies Allergy/AdvReac Type Severity Reaction Status Date / Time No Known Allergies Allergy Verified 08/29/14 17:03 - Medications Medications: Current Medications Albuterol/Ipratropium (Duoneb 3 Mg/0.5 Mg (3 Ml) Ud) 3 ml INH RQ4 PRN PRN Reason: Shortness of Breath Alprazolam (Xanax) 0.5 mg PO TID PRN PRN Reason: Anxiety Brimonidine Tartrate (Alphagan 0.2% Opht) 1 drop OU BID [facility] Last Admin: 05/23/18 09:30 Dose: 1 drop Cholecalciferol (Vitamin D) 2,000 intlu PO DAILY [facility] Last Admin: 05/23/18 09:31 Dose: 2,000 intlu Finasteride (Proscar) 5 mg PO HS [facility] Last Admin: 05/22/18 23:26 Dose: 5 mg Home Med (Linaclotide [Linzess]) 145 mcg PO DAILY PRN PRN Reason: Constipation Home Med (Folic Acid [Folic Acid]) 0.4 mg PO BID [facility] Home Med (Iron,Carbonyl [Iron Chews]) 25 mg PO DAILY [facility] Heparin Sodium/Dextrose (Heparin 25,000 Units/250ml In D5w) 25,000 units in 250 mls @ 18 mls/hr IV .[id number] [facility]; Per Protocol PRN Reason: Protocol Last Admin: 05/23/18 00:00 Dose: 18 mls/hr Lactulose (Enulose) 20 gm PO BID [facility] Last Admin: 05/23/18 09:32 Dose: Not Given Latanoprost (Xalatan Opht) 1 drop OU HS [facility] Last Admin: 05/22/18 23:22 Dose: 1 drop Metoprolol Succinate (Toprol Xl) 50 mg PO BID [facility] Last Admin: 05/23/18 09:33 Dose: 50 mg Minoxidil (Minoxidil) 5 mg PO BID [facility] Last Admin: 05/23/18 09:33 Dose: 5 mg Montelukast Sodium (Singulair) 10 mg PO HS [facility] Potassium Chloride (K-Dur 20 Meq Er Tab) 40 meq PO HS [facility] Timolol Maleate (Timoptic 0.5% Oph Soln) 1 drop OU BID [facility] Last Admin: 05/23/18 09:33 Dose: 1 tona Triamterene/HCTZ (Dyazide 25 Mg-37.5 Mg) 2 cap PO DAILY [facility] Last Admin: 05/23/18 09:31 Dose: 2 cap Valsartan (Diovan) 160 mg PO BID [facility] Last Admin: 05/23/18 09:30 Dose: 160 mg Physical Exam - Head Exam Head Exam: ATRAUMATIC - Eye Exam Eye Exam: Normal appearance - ENT Exam ENT Exam: Mucous Membranes Dry - Respiratory Exam Respiratory Exam: NORMAL BREATHING PATTERN - Cardiovascular Exam Cardiovascular Exam: +S1, +S2 - GI/Abdominal Exam GI & Abdominal Exam: Normal Bowel Sounds - Extremities Exam Extremities exam: Positive for: pedal edema - Neurological Exam Neurological exam: Oriented x3 - Psychiatric Exam Psychiatric exam: Normal Affect, Normal Mood - Skin Skin Exam: Warm Results - Vital Signs Recent Vital Signs: Last Vital Signs Temp 97.4 F L 05/23/18 08:18 Pulse 82 05/23/18 09:33 Resp 20 05/23/18 08:18 BP 132/82 05/23/18 09:33 Pulse Ox 97 05/23/18 08:18 - Labs Result Diagrams: 05/24/18 05:25 05/24/18 05:25 Labs: Laboratory Results - last 24 hr 05/22/18 05/22/18 05/22/18 12:00 12:00 20:50 WBC 4.5 L RBC 3.42 L Hgb 10.1 L Hct 30.6 L MCV 89.6 MCH 29.4 MCHC 32.8 L RDW 16.4 H Plt Count 134 MPV 10.0 Neut % (Auto) 64.0 Lymph % (Auto) 24.1 [place] % (Auto) 10.4 H Eos % (Auto) 0.9 Baso % (Auto) 0.6 Neut # (Auto) 2.9 Lymph # (Auto) 1.1 [place] # (Auto) 0.5 Eos # (Auto) 0.0 Baso # (Auto) 0.0 PT 36.5 H INR 3.2 H APTT 44.2 H Sodium 143 Potassium 4.1 Chloride 101 Carbon Dioxide 31 H Anion Gap 15 BUN 17 Creatinine 0.9 Est GFR ( Amer) > 60 Est GFR (Non-Af Amer) > 60 Random Glucose 140 H Calcium 9.0 Total Bilirubin 1.2 AST 29 ALT 28 Alkaline Phosphatase 106 Troponin I < 0.0120 NT-Pro-B Natriuret Pep 2630 H Total Protein 7.7 Albumin 4.1 Globulin 3.6 Albumin/Globulin Ratio 1.2 05/23/18 05/23/18 05/23/18 05:00 05:00 05:00 WBC 3.6 L RBC 3.06 L Hgb 9.1 L Hct 27.2 L MCV 88.9 MCH 29.7 MCHC 33.4 RDW 16.3 H Plt Count 116 L MPV 10.0 Neut % (Auto) 57.5 Lymph % (Auto) 29.9 [place] % (Auto) 10.4 H Eos % (Auto) 1.4 Baso % (Auto) 0.8 Neut # (Auto) 2.1 Lymph # (Auto) 1.1 [place] # (Auto) 0.4 Eos # (Auto) 0.0 Baso # (Auto) 0.0 PT 28.8 H D INR 2.6 H D APTT Sodium 141 Potassium 3.3 L Chloride 102 Carbon Dioxide 31 H Anion Gap 11 BUN 14 Creatinine 0.7 L Est GFR ( Amer) > 60 Est GFR (Non-Af Amer) > 60 Random Glucose 85 Calcium 8.1 L Total Bilirubin AST ALT Alkaline Phosphatase Troponin I < 0.0120 NT-Pro-B Natriuret Pep Total Protein Albumin Globulin Albumin/Globulin Ratio 05/23/18 08:00 WBC RBC Hgb Hct MCV MCH MCHC RDW Plt Count MPV Neut % (Auto) Lymph % (Auto) [place] % (Auto) Eos % (Auto) Baso % (Auto) Neut # (Auto) Lymph # (Auto) [place] # (Auto) Eos # (Auto) Baso # (Auto) PT INR APTT 163.3 H* D Sodium Potassium Chloride Carbon Dioxide Anion Gap BUN Creatinine Est GFR ( Amer) Est GFR (Non-Af Amer) Random Glucose Calcium Total Bilirubin AST ALT Alkaline Phosphatase Troponin I NT-Pro-B Natriuret Pep Total Protein Albumin Globulin Albumin/Globulin Ratio Assessment & Plan (1) Pulmonary embolism Assessment and Plan: coumadin failure given PE while therapeutic INR s/p IV vit K and placed on heparin drip outpatient Eliquis will send for CT A/P to rule out occult malignancy as cause for hypercoagulability Status: Acute (2) Anemia Assessment and Plan: will send retic count, b12, folate, ferritin to further characterize on oral iron Status: Acute (3) Thrombocytopenia Assessment and Plan: mild may be consumptive from clotting cont. to monitor while on heparin Status: Acute (4) Coagulopathy Assessment and Plan: secondary to anticoagulation Thank you for this interesting consult. Status: Acute
[2018-05-23] MEDS: Heparin 25,000units in D5W 25,000 UNITS/250 ML BAG IV SCH ×3 (11:45→15:15)
--- NOTE | 2018-05-23 15:38 | CP.PCM.PN ---
<Selma OtooleYolette - Last Filed: 05/23/18 17:21> Subjective - Date & Time of Evaluation Date of Evaluation: 05/23/18 Time of Evaluation: 07:15 - Subjective Subjective: Patient seen and examined this morning at bedside, NAD, no SOB at this time on RA, denies chest pain, palpitations, N/V/D, fever or [place]. Objective - Vital Signs/Intake and Output Vital Signs (last 24 hours): Temp Pulse Resp BP Pulse Ox 98.1 F 79 20 122/80 97 05/23/18 12:22 05/23/18 12:22 05/23/18 12:22 05/23/18 12:22 05/23/18 12:22 - Medications Medications: Current Medications Albuterol/Ipratropium (Duoneb 3 Mg/0.5 Mg (3 Ml) Ud) 3 ml INH RQ4 PRN PRN Reason: Shortness of Breath Last Admin: 05/23/18 11:49 Dose: 3 ml Alprazolam (Xanax) 0.5 mg PO TID PRN PRN Reason: Anxiety Brimonidine Tartrate (Alphagan 0.2% Opht) 1 drop OU BID [facility] Last Admin: 05/23/18 09:30 Dose: 1 drop Cholecalciferol (Vitamin D) 2,000 intlu PO DAILY [facility] Last Admin: 05/23/18 09:31 Dose: 2,000 intlu Finasteride (Proscar) 5 mg PO HS [facility] Last Admin: 05/22/18 23:26 Dose: 5 mg Home Med (Linaclotide [Linzess]) 145 mcg PO DAILY PRN PRN Reason: Constipation Home Med (Iron,Carbonyl [Iron Chews]) 25 mg PO DAILY [facility] Heparin Sodium/Dextrose (Heparin 25,000 Units/250ml In D5w) 25,000 units in 250 mls @ 18 mls/hr IV .[id number] [facility]; Per Protocol PRN Reason: Protocol Last Admin: 05/23/18 00:00 Dose: 18 mls/hr Heparin Sodium/Dextrose (Heparin 25,000 Units/250ml In D5w) 25,000 units in 250 mls @ 13 mls/hr IV .[id number] [facility] PRN Reason: Protocol Lactulose (Enulose) 20 gm PO BID [facility] Last Admin: 05/23/18 09:32 Dose: Not Given Latanoprost (Xalatan Opht) 1 drop OU HS [facility] Last Admin: 05/22/18 23:22 Dose: 1 drop Metoprolol Succinate (Toprol Xl) 50 mg PO BID [facility] Last Admin: 05/23/18 09:33 Dose: 50 mg Minoxidil (Minoxidil) 5 mg PO BID [facility] Last Admin: 05/23/18 09:33 Dose: 5 mg Montelukast Sodium (Singulair) 10 mg PO HS [facility] Potassium Chloride (K-Dur 20 Meq Er Tab) 40 meq PO HS [facility] Timolol Maleate (Timoptic 0.5% Oph Soln) 1 drop OU BID [facility] Last Admin: 05/23/18 09:33 Dose: 1 tona Triamterene/HCTZ (Dyazide 25 Mg-37.5 Mg) 2 cap PO DAILY [facility] Last Admin: 05/23/18 09:31 Dose: 2 cap Valsartan (Diovan) 160 mg PO BID [facility] Last Admin: 05/23/18 09:30 Dose: 160 mg - Labs Labs: 05/23/18 05:00 05/23/18 05:00 PT 28.8 Seconds (9.8-13.1) H D 05/23/18 05:00 INR 2.6 (0.9-1.2) H D 05/23/18 05:00 APTT 92.9 Seconds (25.6-37.1) H D 05/23/18 14:04 - Constitutional Appears: No Acute Distress - Head Exam Head Exam: ATRAUMATIC, NORMOCEPHALIC - Eye Exam Eye Exam: PERRL - ENT Exam ENT Exam: Mucous Membranes Moist - Neck Exam Neck Exam: Full ROM - Cardiovascular Exam Cardiovascular Exam: REGULAR RHYTHM, +S1, +S2. absent: JVD - GI/Abdominal Exam GI & Abdominal Exam: Soft, Normal Bowel Sounds - Extremities Exam Extremities Exam: Pedal Edema (2+ ankle edema) - Neurological Exam Neurological Exam: Alert, Awake, Oriented x3 - Psychiatric Exam Psychiatric exam: Normal Affect, Normal Mood - Skin Skin Exam: Normal Color, Warm Assessment and Plan - Assessment and Plan (Free Text) Assessment: 72 yo M with PMHx of HTN, CAD, Aortic aneurysm and valve repair, Afib on warfarin at home 7.5 mg PO daily, S/P cardiac ablation, Pacemaker, Sleep apnea and OA who presented with [facility] and admitted yesterday with a Dx of PE while taking warfarin. Plan: Pulmonry Embolism -CTA 05/22/18: (Impression 1-Acute PE in the right lower lobar pulmonary artery 2 -Linear atelectasis in the right lung base is likely due to elevation of the right on the right hemidiaphragm, however pulmonary infarction is not excluded given the associated PE. ( see full report) -Telemetry lunchroom monitor -Heparin drip as per PE protocol, f/u labs aPTT, plt -Cardiology consult Dr Graves, appreciate recomm -Pulmonary consult Dr Garcia, appreciate recomm -Jacket Changer conult Dr Read, appreciate recomm -Troponin x 2 negative -[place] LE Dupplex done: no evidence of DVT -CXR reported as mild cardiomegaly -EKG:sinus rhythm with PVC,with RBBB, HR 93 A fib -controlled -c/w home meds -on warfarin 7.5 mg PO daily at home, on hold because heparin drip running for tretament of acute PE while on Warfarin -will f/u INR, aPTT -Cardilogy consult on board HTN -controlled -Valsartan 160 po bid -Metoprolol 50 po bid DVT prophylaxis -Patient is on Heparin drip <Chapincito Rod - Last Filed: 05/27/18 06:51> Objective - Vital Signs/Intake and Output Vital Signs (last 24 hours): Temp Pulse Resp BP Pulse Ox 97.7 F 71 18 146/94 H 95 05/27/18 05:40 05/27/18 05:40 05/27/18 05:40 05/27/18 05:40 05/27/18 05:40 Intake and Output: 05/26/18 05/27/18 18:59 06:59 Intake Total 1000 Balance 1000 - Medications Medications: Current Medications Albuterol/Ipratropium (Duoneb 3 Mg/0.5 Mg (3 Ml) Ud) 3 ml INH RQ4 PRN PRN Reason: Shortness of Breath Last Admin: 05/23/18 11:49 Dose: 3 ml Alprazolam (Xanax) 0.5 mg PO TID PRN PRN Reason: Anxiety Last Admin: 05/24/18 00:15 Dose: 0.5 mg Apixaban (Eliquis) 5 mg PO BID [facility] PRN Reason: Protocol Last Admin: 05/26/18 16:52 Dose: 5 mg Brimonidine Tartrate (Alphagan 0.2% Opht) 1 drop OU BID [facility] Last Admin: 05/26/18 16:50 Dose: 1 drop Cholecalciferol (Vitamin D) 2,000 intlu PO DAILY [facility] Last Admin: 05/26/18 08:34 Dose: 2,000 intlu Ferrous Sulfate (Feosol) 325 mg PO BID [facility] Last Admin: 05/26/18 16:52 Dose: 325 mg Finasteride (Proscar) 5 mg PO HS [facility] Last Admin: 05/26/18 21:34 Dose: 5 mg Folic Acid (Folic Acid) 1 mg PO DAILY [facility] Last Admin: 05/26/18 08:32 Dose: 1 mg Home Med (Linaclotide [Linzess]) 145 mcg PO DAILY PRN PRN Reason: Constipation Lactulose (Enulose) 20 gm PO BID [facility] Last Admin: 05/26/18 16:52 Dose: 20 gm Latanoprost (Xalatan Opht) 1 drop OU [facility] Last Admin: 05/26/18 21:34 Dose: 1 drop Metoprolol Succinate (Toprol Xl) 50 mg PO BID [facility] Last Admin: 05/26/18 16:53 Dose: 50 mg Minoxidil (Minoxidil) 5 mg PO BID [facility] Last Admin: 05/26/18 16:52 Dose: 5 mg Montelukast Sodium (Singulair) 10 mg PO HS [facility] Last Admin: 05/26/18 21:34 Dose: 10 mg Potassium Chloride (K-Dur 20 Meq Er Tab) 40 meq PO BID [facility] Last Admin: 05/26/18 16:52 Dose: 40 meq Timolol Maleate (Timoptic 0.5% Ophth Soln) 1 drop OU BID [facility] Last Admin: 05/26/18 16:50 Dose: 1 drop Triamterene/HCTZ (Dyazide 25 Mg-37.5 Mg) 2 cap PO DAILY [facility] Last Admin: 05/26/18 08:32 Dose: 2 cap Valsartan (Diovan) 160 mg PO BID [facility] Last Admin: 05/26/18 16:51 Dose: 160 mg - Labs Labs: 05/25/18 06:30 05/26/18 10:45 PT 17.2 Seconds (9.8-13.1) H D 05/24/18 05:25 INR 1.5 (0.9-1.2) H D 05/24/18 05:25 APTT 63.7 Seconds (25.6-37.1) H D 05/24/18 09:00 Attending/Attestation - Attestation I have personally seen and examined this patient.: Yes I have fully participated in the care of the patient.: Yes I have reviewed all pertinent clinical information, including history, physical exam and plan: Yes
--- NOTE | 2018-05-23 16:36 | CARD ---
APPROVED REPORT Date of service: 05/22/2018 EKG Measurement Heart [id number] [id number] <Conclusion> Sinus rhythm with occasional premature ventricular complexes Right bundle branch block Cannot rule out Anterior infarct, age undetermined Abnormal ECG
[2018-05-23] MEDS: Latanoprost 0.005% Opht SOUTION OU SCH (22:03)
[2018-05-24 05:42] LABS: HEMOGLOBIN 10.3 g/dL (12.0-18.0); MEAN CELL VOLUME 90.5 fl (80.0-94.0); MEAN CORPUSCULAR HEMOGLOBIN 29.5 pg (27.0-31.0); MEAN CORPUSCULAR HGB CONC 32.6 g/dL (33.0-37.0); RBC 3.5 Mil/uL (4.40-5.90); RED CELL DISTRIBUTION WIDTH 16.6 % (11.5-14.5); WHITE BLOOD COUNT 4.2 K/uL (4.8-10.8)
[2018-05-24 06:14] LABS: ALB/GLOB RATIO 1.1 (1.0-2.1); ALBUMIN 3.9 g/dL (3.5-5.0); ALT/SGPT 28 U/L (21-72); AST/SGOT 31 U/L (17-59); BLOOD UREA NITROGEN 12 mg/dl (9-20); CALCIUM 8.7 mg/dL (8.4-10.2); GFR AFRICAN-AMERICAN > 60; GFR NON-AFRICAN AMERICAN > 60
[2018-05-24] MEDS ORDERED: Potassium Chloride 20 mEq ER Tab PO ONE (06:22)
[2018-05-24 06:56] LABS: INR 1.5 (0.9-1.2); PROTHROMBIN TIME 17.2 Seconds (9.8-13.1)
[2018-05-24] MEDS ORDERED: Iohexol 240 (50 ml) PO ONE (08:44)
--- NOTE | 2018-05-24 09:20 | CP.PCM.PN ---
Subjective - Date & Time of Evaluation Date of Evaluation: 05/24/18 Time of Evaluation: 08:30 - Subjective Subjective: NO CHEST PAIN BREATHING BETTER Objective - Vital Signs/Intake and Output Vital Signs (last 24 hours): Temp Pulse Resp BP Pulse Ox 98.3 F 80 18 157/87 H 98 05/24/18 08:03 05/24/18 08:03 05/24/18 08:03 05/24/18 08:03 05/24/18 08:03 - Medications Medications: Current Medications Albuterol/Ipratropium (Duoneb 3 Mg/0.5 Mg (3 Ml) Ud) 3 ml INH RQ4 PRN PRN Reason: Shortness of Breath Last Admin: 05/23/18 11:49 Dose: 3 ml Alprazolam (Xanax) 0.5 mg PO TID PRN PRN Reason: Anxiety Last Admin: 05/24/18 00:15 Dose: 0.5 mg Brimonidine Tartrate (Alphagan 0.2% Opht) 1 drop OU BID [facility] Last Admin: 05/23/18 17:51 Dose: 1 drop Cholecalciferol (Vitamin D) 2,000 intlu PO DAILY [facility] Last Admin: 05/23/18 09:31 Dose: 2,000 intlu Ferrous Sulfate (Feosol) 325 mg PO BID [facility] Last Admin: 05/23/18 17:58 Dose: 325 mg Finasteride (Proscar) 5 mg PO HS [facility] Last Admin: 05/23/18 22:02 Dose: 5 mg Folic Acid (Folic Acid) 1 mg PO DAILY [facility] Home Med (Linaclotide [Linzess]) 145 mcg PO DAILY PRN PRN Reason: Constipation Heparin Sodium/Dextrose (Heparin 25,000 Units/250ml In D5w) 25,000 units in 250 mls @ 13 mls/hr IV .[id number] [facility] PRN Reason: Protocol Last Admin: 05/23/18 15:15 Dose: 13 mls/hr Lactulose (Enulose) 20 gm PO BID [facility] Last Admin: 05/23/18 17:58 Dose: 20 gm Latanoprost (Xalatan Opht) 1 drop OU HS [facility] Last Admin: 05/23/18 22:03 Dose: 1 drop Metoprolol Succinate (Toprol Xl) 50 mg PO BID [facility] Last Admin: 05/23/18 18:06 Dose: 50 mg Minoxidil (Minoxidil) 5 mg PO BID [facility] Last Admin: 05/23/18 18:06 Dose: 5 mg Montelukast Sodium (Singulair) 10 mg PO HS [facility] Last Admin: 05/23/18 22:02 Dose: 10 mg Potassium Chloride (K-Dur 20 Meq Er Tab) 40 meq PO HS [facility] Last Admin: 05/23/18 22:02 Dose: 40 meq Timolol Maleate (Timoptic 0.5% [facility]) 1 drop OU BID [facility] Last Admin: 05/23/18 18:06 Dose: 1 tona Triamterene/HCTZ (Dyazide 25 Mg-37.5 Mg) 2 cap PO DAILY [facility] Last Admin: 05/23/18 09:31 Dose: 2 cap Valsartan (Diovan) 160 mg PO BID [facility] Last Admin: 05/23/18 17:57 Dose: 160 mg - Labs Labs: 05/24/18 05:25 05/24/18 05:25 PT 17.2 Seconds (9.8-13.1) H D 05/24/18 05:25 INR 1.5 (0.9-1.2) H D 05/24/18 05:25 APTT 63.7 Seconds (25.6-37.1) H D 05/24/18 09:00 - Respiratory Exam Respiratory Exam: Clear to Ausculation Bilateral - Cardiovascular Exam Cardiovascular Exam: REGULAR RHYTHM, +S1, +S2 - Extremities Exam Extremities Exam: Pedal Edema - Additional Findings Additional findings: OFFICIAL CT SCAN NOW ON CHART AND READ RLL PE INR WAS 3.2 ON 05/22/18 WHEN HE PRESENTED TO THE ER WHILE ON COUMADIN Assessment and Plan - Assessment and Plan (Free Text) Assessment: RLL PE(WHILE ON THERAPEUTIC DOSE OF COUMADIN)COPD HYPERTENSION CAD THORACIC AORTIC ANEURYSM REPAIR WITH AVR Plan: CONTINUE IV HEPARIN, METOPROLOL, MINOXIDIL, DIOVAN, DYAZIDE, KCL I WOULD RECOMMEND AN ORAL ANTICOAGULANT OTHER THAN COUMADIN ONCE SWITCHED OFF IV HEPARIN BECAUSE BECAUSE COUMADIN AT A THERAPEUTIC INR DID NOT PREVENT HIS PRESENT PE
[2018-05-24] MEDS: Cholecalciferol 1,000 INTLU TAB PO SCH (09:45)
[2018-05-24] MEDS: Metoprolol Succinate 50 mg XL Tab PO SCH ×2 (09:45→17:22)
[2018-05-24] MEDS: Brimonidine 0.2% 50 DROP/5 ML BOTTLE OU SCH ×2 (09:45→17:24)
--- NOTE | 2018-05-24 10:34 | CP.PCM.PN ---
Subjective - Date & Time of Evaluation Date of Evaluation: 05/24/18 Time of Evaluation: 07:40 - Subjective Subjective: Pt is seen and examined with DR. Garcia. Pt slept comfortable. PT state that he is annoyed that his Blood pressure is not controlled, and that they are not giving him medication for constipation. He state he will drink the one he have with him if they dont provide him any medication. Otherwise pt have no other complain, he sat down on the chair yesterday, but he would love to walk around if possible. Pt denies fever, headache, chest pain, SOB, abd pain, diarrhea, dysuria, or polyuria. Vitals WNL except his blood pressure is 157/87 Labs WBC 4.2 RBC 3.5 HGB 10.3 HCT 31.7 MCHC 32.6 K 3.2 and CO 33 Objective - Vital Signs/Intake and Output Vital Signs (last 24 hours): Temp Pulse Resp BP Pulse Ox 98.3 F 80 18 157/87 H 98 05/24/18 08:03 05/24/18 08:03 05/24/18 08:03 05/24/18 08:03 05/24/18 08:03 - Medications Medications: Current Medications Albuterol/Ipratropium (Duoneb 3 Mg/0.5 Mg (3 Ml) Ud) 3 ml INH RQ4 PRN PRN Reason: Shortness of Breath Last Admin: 05/23/18 11:49 Dose: 3 ml Alprazolam (Xanax) 0.5 mg PO TID PRN PRN Reason: Anxiety Last Admin: 05/24/18 00:15 Dose: 0.5 mg Brimonidine Tartrate (Alphagan 0.2% Opht) 1 drop OU BID [facility] Last Admin: 05/23/18 17:51 Dose: 1 drop Cholecalciferol (Vitamin D) 2,000 intlu PO DAILY [facility] Last Admin: 05/23/18 09:31 Dose: 2,000 intlu Ferrous Sulfate (Feosol) 325 mg PO BID [facility] Last Admin: 05/23/18 17:58 Dose: 325 mg Finasteride (Proscar) 5 mg PO [facility] Last Admin: 05/23/18 22:02 Dose: 5 mg Folic Acid (Folic Acid) 1 mg PO DAILY [facility] Home Med (Linaclotide [Linzess]) 145 mcg PO DAILY PRN PRN Reason: Constipation Heparin Sodium/Dextrose (Heparin 25,000 Units/250ml In D5w) 25,000 units in 250 mls @ 13 mls/hr IV .[id number] [facility] PRN Reason: Protocol Last Admin: 05/23/18 15:15 Dose: 13 mls/hr Lactulose (Enulose) 20 gm PO BID [facility] Last Admin: 05/23/18 17:58 Dose: 20 gm Latanoprost (Xalatan Opht) 1 drop OU HS [facility] Last Admin: 05/23/18 22:03 Dose: 1 drop Metoprolol Succinate (Toprol Xl) 50 mg PO BID [facility] Last Admin: 05/23/18 18:06 Dose: 50 mg Minoxidil (Minoxidil) 5 mg PO BID [facility] Last Admin: 05/23/18 18:06 Dose: 5 mg Montelukast Sodium (Singulair) 10 mg PO HS [facility] Last Admin: 05/23/18 22:02 Dose: 10 mg Potassium Chloride (K-Dur 20 Meq Er Tab) 40 meq PO HS [facility] Last Admin: 05/23/18 22:02 Dose: 40 meq Timolol [facility]ate ([facility] 1 drop OU BID [facility] Last Admin: 05/23/18 18:06 Dose: 1 tona Triamterene/HCTZ (Dyazide 25 Mg-37.5 Mg) 2 cap PO DAILY [facility] Last Admin: 05/23/18 09:31 Dose: 2 cap Valsartan (Diovan) 160 mg PO BID [facility] Last Admin: 05/23/18 17:57 Dose: 160 mg - Labs Labs: 05/24/18 05:25 05/24/18 05:25 PT 17.2 Seconds (9.8-13.1) H D 05/24/18 05:25 INR 1.5 (0.9-1.2) H D 05/24/18 05:25 APTT 63.7 Seconds (25.6-37.1) H D 05/24/18 09:00 - Constitutional Appears: Well, Non-toxic, No Acute Distress - Head Exam Head Exam: ATRAUMATIC, NORMAL INSPECTION, NORMOCEPHALIC - Eye Exam Eye Exam: EOMI, Normal appearance, PERRL Pupil Exam: NORMAL ACCOMODATION, PERRL - ENT Exam ENT Exam: Mucous Membranes Moist, Normal Exam - Neck Exam Neck Exam: Normal Inspection - Respiratory Exam Respiratory Exam: Clear to Ausculation Bilateral, NORMAL BREATHING PATTERN - Cardiovascular Exam Cardiovascular Exam: REGULAR RHYTHM, +S1, +S2 - GI/Abdominal Exam GI & Abdominal Exam: Soft, Normal Bowel Sounds - Extremities Exam Extremities Exam: Full ROM - Back Exam Back Exam: NORMAL INSPECTION - Neurological Exam Neurological Exam: Alert, Awake, Oriented x3 Assessment and Plan (1) Pulmonary embolism Assessment & Plan: Pt is a 72 yo male with PMH of A-fib on warfarin 7.5 present with A-fib Plan continue heparin follow Hemeonc recommendation Status: Acute (2) COPD (chronic obstructive pulmonary disease) Assessment & Plan: Pt is 72 yo with COPD Plan continue Duonab Inh prn Status: Chronic (3) A-fib Assessment & Plan: pt is 72 yo male with A-FIb on warfarin 7.5 dx with PE with CT scan Plan Continue heparing at the moment F/U with Hemeonc recommendation Status: Chronic
[2018-05-24] MEDS: Heparin 25,000units in D5W 25,000 UNITS/250 ML BAG IV SCH (10:46)
--- NOTE | 2018-05-24 11:21 | CP.PCM.PN ---
Addendum entered and electronically signed by Yolette Ye MD 16:55: Acute on chronic heart failure, unknown systolic or diastolic. Original Note: <Yolette Ye - Last Filed: 05/24/18 15:52> Subjective - Date & Time of Evaluation Date of Evaluation: 05/24/18 Time of Evaluation: 07:15 - Subjective Subjective: Patient seen and examined this morning at bedside, NAD, patient states he is feeling better today, no SOB at this time on RA, denies chest pain, palpitations , N/V/D, fever or ARMSTRONG. Objective - Vital Signs/Intake and Output Vital Signs (last 24 hours): Temp Pulse Resp BP Pulse Ox 98.3 F 80 18 157/87 H 98 05/24/18 08:03 05/24/18 08:03 05/24/18 08:03 05/24/18 08:03 05/24/18 08:03 Intake and Output: 05/24/18 05/24/18 06:59 18:59 Intake Total 250 Balance 250 - Medications Medications: Current Medications Albuterol/Ipratropium (Duoneb 3 Mg/0.5 Mg (3 Ml) Ud) 3 ml INH RQ4 PRN PRN Reason: Shortness of Breath Last Admin: 05/23/18 11:49 Dose: 3 ml Alprazolam (Xanax) 0.5 mg PO TID PRN PRN Reason: Anxiety Last Admin: 05/24/18 00:15 Dose: 0.5 mg Brimonidine Tartrate (Alphagan 0.2% Opht) 1 drop OU BID [facility] Last Admin: 05/24/18 09:45 Dose: 1 drop Cholecalciferol (Vitamin D) 2,000 intlu PO DAILY [facility] Last Admin: 05/24/18 09:45 Dose: 2,000 intlu Ferrous Sulfate (Feosol) 325 mg PO BID [facility] Last Admin: 05/24/18 09:45 Dose: 325 mg Finasteride (Proscar) 5 mg PO HS [facility] Last Admin: 05/23/18 22:02 Dose: 5 mg Folic Acid (Folic Acid) 1 mg PO DAILY [facility] Last Admin: 05/24/18 09:45 Dose: 1 mg Home Med (Linaclotide [Linzess]) 145 mcg PO DAILY PRN PRN Reason: Constipation Heparin Sodium/Dextrose (Heparin 25,000 Units/250ml In D5w) 25,000 units in 250 mls @ 13 mls/hr IV .[id number] [facility] PRN Reason: Protocol Last Admin: 05/24/18 10:46 Dose: 13 mls/hr Lactulose (Enulose) 20 gm PO BID [facility] Last Admin: 05/24/18 09:45 Dose: 20 gm Latanoprost (Xalatan Opht) 1 drop OU HS [facility] Last Admin: 05/23/18 22:03 Dose: 1 drop Metoprolol Succinate (Toprol Xl) 50 mg PO BID [facility] Last Admin: 05/24/18 09:45 Dose: 50 mg Minoxidil (Minoxidil) 5 mg PO BID [facility] Last Admin: 05/24/18 09:45 Dose: 5 mg Montelukast Sodium (Singulair) 10 mg PO [facility] Last Admin: 05/23/18 22:02 Dose: 10 mg Potassium Chloride (K-Dur 20 Meq Er Tab) 40 meq PO HS [facility] Last Admin: 05/23/18 22:02 Dose: 40 meq Timolol Maleate (Timoptic 0.5% Oph Soln) 1 drop OU BID [facility] Last Admin: 05/24/18 09:45 Dose: 1 tona Triamterene/HCTZ (Dyazide 25 Mg-37.5 Mg) 2 cap PO DAILY [facility] Last Admin: 05/23/18 09:31 Dose: 2 cap Valsartan (Diovan) 160 mg PO BID [facility] Last Admin: 05/24/18 09:45 Dose: 160 mg - Labs Labs: 05/24/18 05:25 05/24/18 05:25 PT 17.2 Seconds (9.8-13.1) H D 05/24/18 05:25 INR 1.5 (0.9-1.2) H D 05/24/18 05:25 APTT 63.7 Seconds (25.6-37.1) H D 05/24/18 09:00 - Head Exam Head Exam: ATRAUMATIC, NORMOCEPHALIC - Eye Exam Eye Exam: EOMI, PERRL - ENT Exam ENT Exam: Mucous Membranes Moist - Respiratory Exam Respiratory Exam: Clear to Ausculation Bilateral. absent: Rales, Wheezes - Cardiovascular Exam Cardiovascular Exam: REGULAR RHYTHM, +S1, +S2 - GI/Abdominal Exam GI & Abdominal Exam: Soft, Normal Bowel Sounds - Extremities Exam Extremities Exam: Pedal Edema - Neurological Exam Neurological Exam: Alert, Awake, Oriented x3 - Psychiatric Exam Psychiatric exam: Normal Affect, Normal Mood - Skin Skin Exam: Normal Color, Warm Assessment and Plan - Assessment and Plan (Free Text) Assessment: 72 yo M with PMHx of HTN, CAD, Aortic aneurysm and valve repair, Afib, S/P cardiac ablation, Pacemaker, Sleep apnea and OA admitted with c/o SHIPLEY and Dx with PE on CTA while taking warfarin with therapeutic INR. Plan: Pulmonry Embolism -CTA 05/22/18: (Impression 1-Acute PE in the right lower lobar pulmonary artery 2 -Linear atelectasis in the right lung base is likely due to elevation of the right on the right hemidiaphragm, however pulmonary infarction is not excluded given the associated PE. ( see full report) -Telemetry resource protection specialist -Heparin drip as per PE protocol, f/u labs aPTT, plt -Cardiology consult Dr Graves, will f/u recomm -Pulmonary consult Dr Garcia, will f/u recomm -Stem Assembler conult Dr Read, w/u to r/o secondary hypercoagulability, and C/T of A/P, will f/u recomm -Troponin x 2 negative -Benito LE Dupplex done: no evidence of DVT -CXR reported as mild cardiomegaly -EKG (05/22/18):sinus rhythm with PVC,with RBBB, HR 93 A fib -controlled -c/w home meds -on warfarin 7.5 mg PO daily at home, warfarin is D/C at this time, will consider eliquis outpatient -will f/u aPTT -Cardilogy consult on board Mild Hypokalemia -resume potassium PO -f/u CBC, BMP HTN -Valsartan 160 po bid -Metoprolol 50 po bid -metoprolol, -minoxidil. -dyazide DVT prophylaxis -Patient is on Heparin drip <Juliocesar Calix - Last Filed: 05/27/18 06:57> Objective - Vital Signs/Intake and Output Vital Signs (last 24 hours): Temp Pulse Resp BP Pulse Ox 97.7 F 71 18 146/94 H 95 05/27/18 05:40 05/27/18 05:40 05/27/18 05:40 05/27/18 05:40 05/27/18 05:40 Intake and Output: 05/26/18 05/27/18 18:59 06:59 Intake Total 1000 Balance 1000 - Medications Medications: Current Medications Albuterol/Ipratropium (Duoneb 3 Mg/0.5 Mg (3 Ml) Ud) 3 ml INH RQ4 PRN PRN Reason: Shortness of Breath Last Admin: 05/23/18 11:49 Dose: 3 ml Alprazolam (Xanax) 0.5 mg PO TID PRN PRN Reason: Anxiety Last Admin: 05/24/18 00:15 Dose: 0.5 mg Apixaban (Eliquis) 5 mg PO BID [facility] PRN Reason: Protocol Last Admin: 05/26/18 16:52 Dose: 5 mg Brimonidine Tartrate (Alphagan 0.2% Opht) 1 drop OU BID [facility] Last Admin: 05/26/18 16:50 Dose: 1 drop Cholecalciferol (Vitamin D) 2,000 intlu PO DAILY [facility] Last Admin: 05/26/18 08:34 Dose: 2,000 intlu Ferrous Sulfate (Feosol) 325 mg PO BID [facility] Last Admin: 05/26/18 16:52 Dose: 325 mg Finasteride (Proscar) 5 mg PO HS [facility] Last Admin: 05/26/18 21:34 Dose: 5 mg Folic Acid (Folic Acid) 1 mg PO DAILY [facility] Last Admin: 05/26/18 08:32 Dose: 1 mg Home Med (Linaclotide [Linzess]) 145 mcg PO DAILY PRN PRN Reason: Constipation Lactulose (Enulose) 20 gm PO BID [facility] Last Admin: 05/26/18 16:52 Dose: 20 gm Latanoprost (Xalatan Opht) 1 drop OU HS [facility] Last Admin: 05/26/18 21:34 Dose: 1 drop Metoprolol Succinate (Toprol Xl) 50 mg PO BID [facility] Last Admin: 05/26/18 16:53 Dose: 50 mg Minoxidil (Minoxidil) 5 mg PO BID [facility] Last Admin: 05/26/18 16:52 Dose: 5 mg Montelukast Sodium (Singulair) 10 mg PO HS [facility] Last Admin: 05/26/18 21:34 Dose: 10 mg Potassium Chloride (K-Dur 20 Meq Er Tab) 40 meq PO BID [facility] Last Admin: 05/26/18 16:52 Dose: 40 meq Timolol Maleate (Timoptic 0.5% Ophth Soln) 1 drop OU BID [facility] Last Admin: 05/26/18 16:50 Dose: 1 drop Triamterene/HCTZ (Dyazide 25 Mg-37.5 Mg) 2 cap PO DAILY [facility] Last Admin: 05/26/18 08:32 Dose: 2 cap Valsartan (Diovan) 160 mg PO BID [facility] Last Admin: 05/26/18 16:51 Dose: 160 mg - Labs Labs: 05/25/18 06:30 05/26/18 10:45 PT 17.2 Seconds (9.8-13.1) H D 05/24/18 05:25 INR 1.5 (0.9-1.2) H D 05/24/18 05:25 APTT 63.7 Seconds (25.6-37.1) H D 05/24/18 09:00 Attending/Attestation - Attestation I have personally seen and examined this patient.: Yes I have fully participated in the care of the patient.: Yes I have reviewed all pertinent clinical information, including history, physical exam and plan: Yes
[2018-05-24] MEDS ORDERED: Iohexol 300 100 ML IJ ONE (13:05)
[2018-05-24] MEDS ORDERED: Sodium Chloride 0.9% 50 ML IV ONE (13:05)
--- NOTE | 2018-05-24 14:20 | CT ---
Date of service: 05/24/2018 PROCEDURE: CT Abdomen and Pelvis with contrast HISTORY: rule out occult malignancy COMPARISON: None. TECHNIQUE: Contrast dose: At 95 cc of Omnipaque 300. Axial and reformatted coronal and sagittal CT images of the abdomen and pelvis were obtained after IV and oral contrast administration. Radiation dose: Total exam DLP = 1044.02 mGy-cm. This CT exam was performed using one or more of the following dose reduction techniques: Automated exposure control, adjustment of the mA and/or kV according to patient size, and/or use of iterative reconstruction technique. FINDINGS: LOWER THORAX: Cardiomegaly is noted. There are pacemaker wires extending to the heart. No evidence of acute pathology in the lung bases. Trace right pleural effusion. LIVER: Heterogeneous enhancement of the heart is noted. No evidence of discrete mass lesion. GALLBLADDER AND BILE DUCTS: Mild gallbladder wall thickening is noted. There is ascites and pericholecystic fluid noted. PANCREAS: Unremarkable. No gross lesion or ductal dilatation. SPLEEN: Unremarkable. ADRENALS: Stable enhancing nodule at the left adrenal gland measures 11 millimeter. KIDNEYS AND URETERS: The kidneys enhance symmetrically without evidence of hydronephrosis. Again seen are bilateral low-attenuation lesions in the kidneys. There is interval increase in size of exophytic lesion at the upper pole of the right kidney measures 1.3 centimeter since the previous exam. VASCULATURE: Unremarkable. No aortic aneurysm. BOWEL: Scattered colonic diverticulosis are again noted. No evidence of obstructing mass lesion in the bowel. No evidence of small bowel obstruction. APPENDIX: There is no evidence of appendicitis. The appendix is not clearly visualized in this study. PERITONEUM: There is interval appearance of small amount of free fluid in the abdomen since the previous exam. No evidence of free air. LYMPH NODES: Unremarkable. No enlarged lymph nodes. BLADDER: Diffuse urinary bladder wall thickening is noted. REPRODUCTIVE: The prostate is mildly to moderately enlarged. BONES: No acute fracture. OTHER FINDINGS: None. IMPRESSION: No definite CT evidence of mass lesion in the upper abdomen solid organs. Interval increase in the size of complex lesion exophytic from the upper pole of the right kidney since the previous study. Further assessment of the kidneys by ultrasound is suggested. Interval appearance of small amount of ascites in the abdomen since the previous study. Cardiomegaly. [id number] enlarged prostate. [id number] urinary bladder wall thickening.
[2018-05-24] MEDS: Potassium Chloride 20 mEq ER Tab PO SCH (17:24)
[2018-05-24] MEDS: Latanoprost 0.005% Opht SOUTION OU SCH (21:43)
[2018-05-25 07:29] LABS: HEMOGLOBIN 10.1 g/dL (12.0-18.0); MEAN CELL VOLUME 89.1 fl (80.0-94.0); MEAN CORPUSCULAR HEMOGLOBIN 29.6 pg (27.0-31.0); MEAN CORPUSCULAR HGB CONC 33.2 g/dL (33.0-37.0); RBC 3.4 Mil/uL (4.40-5.90); RED CELL DISTRIBUTION WIDTH 16.8 % (11.5-14.5); WHITE BLOOD COUNT 4.1 K/uL (4.8-10.8)
[2018-05-25 07:50] LABS: BLOOD UREA NITROGEN 8 mg/dl (9-20); CALCIUM 8.7 mg/dL (8.4-10.2); GFR AFRICAN-AMERICAN > 60; GFR NON-AFRICAN AMERICAN > 60
[2018-05-25] MEDS: Metoprolol Succinate 50 mg XL Tab PO SCH ×2 (08:04→16:42)
[2018-05-25 08:08] LABS: FERRITIN 44.8 ng/Ml (17.9-464)
[2018-05-25] MEDS: Potassium Chloride 20 mEq ER Tab PO SCH ×2 (08:10→16:44)
[2018-05-25] MEDS: hydroCHLOROthiazide-Triamterene 25 mg-37.5 mg Cap UD PO SCH (08:10)
[2018-05-25] MEDS: Cholecalciferol 1,000 INTLU TAB PO SCH (08:10)
[2018-05-25] MEDS: Brimonidine 0.2% 50 DROP/5 ML BOTTLE OU SCH ×2 (08:11→16:41)
[2018-05-25 13:08] LABS: FOLATE > 20.0 ng/mL
--- NOTE | 2018-05-25 13:21 | CP.PCM.PN ---
Subjective - Date & Time of Evaluation Date of Evaluation: 05/25/18 Time of Evaluation: 12:30 - Subjective Subjective: NO CHEST PAIN OR PALPITAIONS BREATHING BETTER Objective - Vital Signs/Intake and Output Vital Signs (last 24 hours): Temp Pulse Resp BP Pulse Ox 98.9 F 109 H 20 154/105 H 99 05/25/18 12:00 05/25/18 12:00 05/25/18 12:00 05/25/18 12:00 05/25/18 12:00 - Medications Medications: Current Medications Albuterol/Ipratropium (Duoneb 3 Mg/0.5 Mg (3 Ml) Ud) 3 ml INH RQ4 PRN PRN Reason: Shortness of Breath Last Admin: 05/23/18 11:49 Dose: 3 ml Alprazolam (Xanax) 0.5 mg PO TID PRN PRN Reason: Anxiety Last Admin: 05/24/18 00:15 Dose: 0.5 mg Apixaban (Eliquis) 5 mg PO BID [facility] PRN Reason: Protocol Last Admin: 05/25/18 08:09 Dose: 5 mg Brimonidine Tartrate (Alphagan 0.2% Opht) 1 drop OU BID [facility] Last Admin: 05/25/18 08:11 Dose: 1 drop Cholecalciferol (Vitamin D) 2,000 intlu PO DAILY [facility] Last Admin: 05/25/18 08:10 Dose: 2,000 intlu Ferrous Sulfate (Feosol) 325 mg PO BID [facility] Last Admin: 05/25/18 08:11 Dose: 325 mg Finasteride (Proscar) 5 mg PO HS [facility] Last Admin: 05/24/18 21:43 Dose: 5 mg Folic Acid (Folic Acid) 1 mg PO DAILY [facility] Last Admin: 05/25/18 08:09 Dose: 1 mg Home Med (Linaclotide [Linzess]) 145 mcg PO DAILY PRN PRN Reason: Constipation Lactulose (Enulose) 20 gm PO BID [facility] Last Admin: 05/25/18 08:12 Dose: 20 gm Latanoprost (Xalatan Opht) 1 drop OU HS [facility] Last Admin: 05/24/18 21:43 Dose: 1 drop Metoprolol Succinate (Toprol Xl) 50 mg PO BID [facility] Last Admin: 05/25/18 08:04 Dose: 50 mg Minoxidil (Minoxidil) 5 mg PO BID [facility] Last Admin: 05/25/18 08:09 Dose: 5 mg Montelukast Sodium (Singulair) 10 mg PO HS [facility] Last Admin: 05/24/18 21:43 Dose: 10 mg Potassium Chloride (K-Dur 20 Meq Er Tab) 40 meq PO BID [facility] Last Admin: 05/25/18 08:10 Dose: 40 meq Timolol Maleate (Timoptic 0.5% [facility]) 1 drop OU BID [facility] Last Admin: 05/25/18 08:12 Dose: 1 drop Triamterene/HCTZ (Dyazide 25 Mg-37.5 Mg) 2 cap PO DAILY [facility] Last Admin: 05/25/18 08:10 Dose: 2 cap Valsartan (Diovan) 160 mg PO BID [facility] Last Admin: 05/25/18 08:09 Dose: 160 mg - Labs Labs: 05/25/18 06:30 05/25/18 06:30 PT 17.2 Seconds (9.8-13.1) H D 05/24/18 05:25 INR 1.5 (0.9-1.2) H D 05/24/18 05:25 APTT 63.7 Seconds (25.6-37.1) H D 05/24/18 09:00 - Respiratory Exam Respiratory Exam: Clear to Ausculation Bilateral - Cardiovascular Exam Cardiovascular Exam: REGULAR RHYTHM, +S1, +S2 - Extremities Exam Extremities Exam: Pedal Edema - Additional Findings Additional findings: BP WAS 160/130 AT 11 AM AND HE WAS GIVEN HYDRALAZINE 50 MGS AND HIS BP DECREASED TO 154/105 Assessment and Plan - Assessment and Plan (Free Text) Assessment: PULMONARY EMBOLUS WHILE ON THERAPEUTIC COUMADIN HYPERTENSION CAD ASCENDING AORTA ANEURYSM REPAIR WITH AVR HISTORY OF ATRIAL FIBRILLATION COPD Plan: THE PATIENT WAS SEEN BY HEMATOLOGY AND STARTED ON ELIQUIS CONTINUE DIOVAN, METOPROLOL, MINOXIDIL, AND DYAZIDE PATIENT GIVEN HYDRALAZINE 50 MGS PO AT 11 AM-MONITOR BP PULMONARY TO SEE
--- NOTE | 2018-05-25 18:38 | CP.PCM.PCO ---
Physician Communication Note - Physician Communication Note Physician Communication Note: htn History Per: Patient History/Exam Limitations: no limitations Onset/Duration Of Symptoms: Intermittent Episodes, Gradual Current Symptoms Are (Timing): Still Present Associated Symptoms: denies: Chest Pain, Dyspnea, Dizziness, Blurred Vision, Focal Weakness, Headache Quality Of Symptoms: Asymptomatic Severity: Mild (Nurse alerted of bp of 172/114 asx. Evaluated pt. Denies CP/SOB/ ARMSTRONG. Feels well without complaints. Will adminiser another dose of hydralazine 50 mg and monitor vitals.) Pain Scale Rating Of: 0
[2018-05-25] MEDS: Latanoprost 0.005% Opht SOUTION OU SCH (21:38)
--- NOTE | 2018-05-26 08:19 | CP.PCM.PN ---
Subjective - Date & Time of Evaluation Date of Evaluation: 05/26/18 Time of Evaluation: 08:00 - Subjective Subjective: Patient seen and examined, NAD, no SOB at this time on RA, denies chest pain, palpitations, N/V/D, fever or ARMSTRONG. Objective - Vital Signs/Intake and Output Vital Signs (last 24 hours): Temp Pulse Resp BP Pulse Ox 98.8 F 89 20 162/94 H 97 05/26/18 08:00 05/26/18 08:00 05/26/18 08:00 05/26/18 08:00 05/26/18 08:00 - Medications Medications: Current Medications Albuterol/Ipratropium (Duoneb 3 Mg/0.5 Mg (3 Ml) Ud) 3 ml INH RQ4 PRN PRN Reason: Shortness of Breath Last Admin: 05/23/18 11:49 Dose: 3 ml Alprazolam (Xanax) 0.5 mg PO TID PRN PRN Reason: Anxiety Last Admin: 05/24/18 00:15 Dose: 0.5 mg Apixaban (Eliquis) 5 mg PO BID [facility] PRN Reason: Protocol Last Admin: 05/25/18 16:41 Dose: 5 mg Brimonidine Tartrate (Alphagan 0.2% Opht) 1 drop OU BID [facility] Last Admin: 05/25/18 16:41 Dose: 1 drop Cholecalciferol (Vitamin D) 2,000 intlu PO DAILY [facility] Last Admin: 05/25/18 08:10 Dose: 2,000 intlu Ferrous Sulfate (Feosol) 325 mg PO BID [facility] Last Admin: 05/25/18 16:44 Dose: 325 mg Finasteride (Proscar) 5 mg PO HS [facility] Last Admin: 05/25/18 21:38 Dose: 5 mg Folic Acid (Folic Acid) 1 mg PO DAILY [facility] Last Admin: 05/25/18 08:09 Dose: 1 mg Home Med (Linaclotide [Linzess]) 145 mcg PO DAILY PRN PRN Reason: Constipation Lactulose (Enulose) 20 gm PO BID [facility] Last Admin: 05/25/18 16:44 Dose: 20 gm Latanoprost (Xalatan Opht) 1 drop OU HS [facility] Last Admin: 05/25/18 21:38 Dose: 1 drop Metoprolol Succinate (Toprol Xl) 50 mg PO BID [facility] Last Admin: 05/25/18 16:42 Dose: 50 mg Minoxidil (Minoxidil) 5 mg PO BID [facility] Last Admin: 05/25/18 16:41 Dose: 5 mg Montelukast Sodium (Singulair) 10 mg PO HS [facility] Last Admin: 05/25/18 21:38 Dose: 10 mg Potassium Chloride (K-Dur 20 Meq Er Tab) 40 meq PO BID [facility] Last Admin: 05/25/18 16:44 Dose: 40 meq Timolol Maleate (Timoptic 0.5% Ophth Soln) 1 drop OU BID [facility] Last Admin: 05/25/18 16:40 Dose: 1 drop Triamterene/HCTZ (Dyazide 25 Mg-37.5 Mg) 2 cap PO DAILY [facility] Last Admin: 05/25/18 08:10 Dose: 2 cap Valsartan (Diovan) 160 mg PO BID [facility] Last Admin: 05/25/18 16:40 Dose: 160 mg - Labs Labs: 05/25/18 06:30 05/25/18 06:30 PT 17.2 Seconds (9.8-13.1) H D 05/24/18 05:25 INR 1.5 (0.9-1.2) H D 05/24/18 05:25 APTT 63.7 Seconds (25.6-37.1) H D 05/24/18 09:00 - Head Exam Head Exam: ATRAUMATIC, NORMOCEPHALIC - Eye Exam Eye Exam: PERRL - ENT Exam ENT Exam: Mucous Membranes Moist - Respiratory Exam Respiratory Exam: Clear to Ausculation Bilateral. absent: Wheezes - Cardiovascular Exam Cardiovascular Exam: REGULAR RHYTHM, +S1, +S2 Additional comments: There is a midsternum surgical scar of approximately 10 cm corresponding with Hx of open heart sx in the past, also pacemaker present to left side of upper chest - Extremities Exam Extremities Exam: Pedal Edema - Neurological Exam Neurological Exam: Alert, Awake, Oriented x3 - Psychiatric Exam Psychiatric exam: Normal Affect, Normal Mood - Skin Skin Exam: Normal Color, Warm Assessment and Plan - Assessment and Plan (Free Text) Assessment: 72 yo M with PMHx of HTN, CAD, Aortic aneurysm and valve repair, Afib, S/P cardiac ablation, Pacemaker, Sleep apnea and OA admitted with c/o SHIPLEY and Dx with PE on CTA while taking warfarin with therapeutic INR. Plan: Pulmonry Embolism -CTA 05/22/18: (Impression 1-Acute PE in the right lower lobar pulmonary artery 2 -Linear atelectasis in the right lung base is likely due to elevation of the right on the right hemidiaphragm, however pulmonary infarction is not excluded given the associated PE. ( see full report) -Telemetry manager cardiac -Eliquis 5 po bid initiated on 05/24/18 after receiving initial treatment with heparin drip -Cardiology consult Dr Graves, will f/u recomm -Pulmonary consult Dr Garcia, will f/u recomm -Chicken Sexer conult Dr Read, -Troponin x 2 negative -Benito LE Dupplex done: no evidence of DVT -CXR reported as mild cardiomegaly -EKG (05/22/18):sinus rhythm with PVC,with RBBB, HR 93 A fib -controlled -initiated Eliquis 5 po bid on 05/24/18 -warfarin was D/C at this time, Pt had PE on warfarin -Cardilogy consult on board Mild Hypokalemia -resume potassium PO 40 mEq po bid -f/u CBC, BMP HTN/uncontrolled -Valsartan 160 po bid -Metoprolol xl 50 po bid -dyazide (25-37.5) 2 caps po qd -minoxidil DVT prophylaxis -eliquis 5 po bid
[2018-05-26] MEDS: Brimonidine 0.2% 50 DROP/5 ML BOTTLE OU SCH ×2 (08:31→16:50)
[2018-05-26] MEDS: hydroCHLOROthiazide-Triamterene 25 mg-37.5 mg Cap UD PO SCH (08:32)
[2018-05-26] MEDS: Metoprolol Succinate 50 mg XL Tab PO SCH ×2 (08:33→16:53)
[2018-05-26] MEDS: Potassium Chloride 20 mEq ER Tab PO SCH ×2 (08:33→16:52)
[2018-05-26] MEDS: Cholecalciferol 1,000 INTLU TAB PO SCH (08:34)
[2018-05-26 11:10] LABS: BLOOD UREA NITROGEN 9 mg/dl (9-20); CALCIUM 9.5 mg/dL (8.4-10.2); GFR AFRICAN-AMERICAN > 60; GFR NON-AFRICAN AMERICAN > 60
[2018-05-26] MEDS: Latanoprost 0.005% Opht SOUTION OU SCH (21:34)
[2018-05-27 06:57] LABS: BLOOD UREA NITROGEN 11 mg/dl (9-20); CALCIUM 8.9 mg/dL (8.4-10.2); GFR AFRICAN-AMERICAN > 60; GFR NON-AFRICAN AMERICAN > 60
[2018-05-27] MEDS: Metoprolol Succinate 50 mg XL Tab PO SCH ×2 (08:39→17:38)
[2018-05-27] MEDS: Brimonidine 0.2% 50 DROP/5 ML BOTTLE OU SCH ×2 (08:39→17:37)
[2018-05-27] MEDS: hydroCHLOROthiazide-Triamterene 25 mg-37.5 mg Cap UD PO SCH (08:40)
[2018-05-27] MEDS: Cholecalciferol 1,000 INTLU TAB PO SCH (08:41)
[2018-05-27] MEDS: Potassium Chloride 20 mEq ER Tab PO SCH ×2 (08:42→17:39)
--- NOTE | 2018-05-27 09:12 | CP.PCM.PN ---
<Edwin Rodriguez - Last Filed: 05/27/18 13:44> Subjective - Date & Time of Evaluation Date of Evaluation: 05/27/18 Time of Evaluation: 08:30 - Subjective Subjective: Patient seen and examined, no acute distress, no SOB at this time on RA, denies chest pain, palpitations, N/V/D, fever or [place]. Objective - Vital Signs/Intake and Output Vital Signs (last 24 hours): Temp Pulse Resp BP Pulse Ox 98.4 F 82 18 147/87 99 05/27/18 08:23 05/27/18 08:39 05/27/18 08:23 05/27/18 08:39 05/27/18 08:23 - Medications Medications: Current Medications Albuterol/Ipratropium (Duoneb 3 Mg/0.5 Mg (3 Ml) Ud) 3 ml INH RQ4 PRN PRN Reason: Shortness of Breath Last Admin: 05/23/18 11:49 Dose: 3 ml Alprazolam (Xanax) 0.5 mg PO TID PRN PRN Reason: Anxiety Last Admin: 05/24/18 00:15 Dose: 0.5 mg Apixaban (Eliquis) 5 mg PO BID [facility] PRN Reason: Protocol Last Admin: 05/27/18 08:40 Dose: 5 mg Brimonidine Tartrate (Alphagan 0.2% Opht) 1 drop OU BID [facility] Last Admin: 05/27/18 08:39 Dose: 1 drop Cholecalciferol (Vitamin D) 2,000 intlu PO DAILY [facility] Last Admin: 05/27/18 08:41 Dose: 2,000 intlu Ferrous Sulfate (Feosol) 325 mg PO BID [facility] Last Admin: 05/27/18 08:41 Dose: 325 mg Finasteride (Proscar) 5 mg PO HS [facility] Last Admin: 05/26/18 21:34 Dose: 5 mg Folic Acid (Folic Acid) 1 mg PO DAILY [facility] Last Admin: 05/26/18 08:32 Dose: 1 mg Home Med (Linaclotide [Linzess]) 145 mcg PO DAILY PRN PRN Reason: Constipation Lactulose (Enulose) 20 gm PO BID [facility] Last Admin: 05/27/18 08:41 Dose: 20 gm Latanoprost (Xalatan Opht) 1 drop OU HS [facility] Last Admin: 05/26/18 21:34 Dose: 1 drop Metoprolol Succinate (Toprol Xl) 50 mg PO BID [facility] Last Admin: 05/27/18 08:39 Dose: 50 mg Minoxidil (Minoxidil) 5 mg PO BID [facility] Last Admin: 05/27/18 08:42 Dose: 5 mg Montelukast Sodium (Singulair) 10 mg PO HS [facility] Last Admin: 05/26/18 21:34 Dose: 10 mg Potassium Chloride (K-Dur 20 Meq Er Tab) 40 meq PO BID [facility] Last Admin: 05/27/18 08:42 Dose: 40 meq Timolol Maleate (Timoptic 0.5% Oph Soln) 1 drop OU BID [facility] Last Admin: 05/27/18 08:40 Dose: 1 drop Triamterene/HCTZ (Dyazide 25 Mg-37.5 Mg) 2 cap PO DAILY [facility] Last Admin: 05/27/18 08:40 Dose: 2 cap Valsartan (Diovan) 160 mg PO BID [facility] Last Admin: 05/27/18 08:39 Dose: 160 mg - Labs Labs: 05/25/18 06:30 05/27/18 04:20 PT 17.2 Seconds (9.8-13.1) H D 05/24/18 05:25 INR 1.5 (0.9-1.2) H D 05/24/18 05:25 APTT 63.7 Seconds (25.6-37.1) H D 05/24/18 09:00 - Constitutional Appears: Well, No Acute Distress - Head Exam Head Exam: ATRAUMATIC, NORMOCEPHALIC - Eye Exam Eye Exam: EOMI, Normal appearance, PERRL - ENT Exam ENT Exam: Mucous Membranes Moist - Neck Exam Neck Exam: Full ROM - Respiratory Exam Respiratory Exam: Clear to Ausculation Bilateral, NORMAL BREATHING PATTERN - Cardiovascular Exam Cardiovascular Exam: REGULAR RHYTHM, +S1, +S2. absent: Murmur - GI/Abdominal Exam GI & Abdominal Exam: Soft, Normal Bowel Sounds - Neurological Exam Neurological Exam: Alert, Awake, Oriented x3 - Psychiatric Exam Psychiatric exam: Normal Affect, Normal Mood - Skin Skin Exam: Dry, Intact, Normal Color, Warm Assessment and Plan (1) Pulmonary embolism Assessment & Plan: -CTA 05/22/18: (Impression 1-Acute PE in the right lower lobar pulmonary artery 2 -Linear atelectasis in the right lung base is likely due to elevation of the right on the right hemidiaphragm, however pulmonary infarction is not excluded given the associated PE. (see full report) -Troponin x 2 negative -Benito LE Dupplex: no evidence of DVT -CXR reported as mild cardiomegaly -EKG (05/22/18):sinus rhythm with PVC,with RBBB, HR 93 -Echocardiogram: EF 60-65%, RV mild-moderately dilated, RA moderately dilated, moderate MR, Reduced RV systolic function. 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 -Cleared by Dr Graves -Pulmonary consult Dr Garcia, agueda f/u recomm -Heavy Coil Winder consult Dr Read Status: Acute (2) A-fib Assessment & Plan: -controlled -initiated Eliquis 5 po bid on 05/24/18 -warfarin was D/C at this time, Pt had PE on warfarin -Cardiology consult on board Status: Chronic (3) Hypokalemia Assessment & Plan: -Resolved(K+ 3.6 on 05/27/18, Previous K+ 3.4>3.0>3.2) -resume potassium PO 40 mEq po bid -f/u CBC, BMP Status: Resolved (4) HTN (hypertension) Assessment & Plan: -Continue Valsartan 160 po bid -Metoprolol xl 50 po bid -dyazide (25-37.5) 2 caps po qd -minoxidil Status: Acute (5) DVT prophylaxis Assessment & Plan: -eliquis 5 po bid Status: Acute <Juliocesar Calix A - Last Filed: 05/29/18 06:49> Objective - Vital Signs/Intake and Output Vital Signs (last 24 hours): Temp Pulse Resp BP Pulse Ox 98.1 F 83 18 144/91 H 97 05/29/18 05:15 05/29/18 05:15 05/29/18 05:15 05/29/18 05:15 05/29/18 05:15 - Medications Medications: Current Medications Albuterol/Ipratropium (Duoneb 3 Mg/0.5 Mg (3 Ml) Ud) 3 ml INH RQ4 PRN PRN Reason: Shortness of Breath Last Admin: 05/23/18 11:49 Dose: 3 ml Alprazolam (Xanax) 0.5 mg PO TID PRN PRN Reason: Anxiety Last Admin: 05/24/18 00:15 Dose: 0.5 mg Apixaban (Eliquis) 5 mg PO BID [facility] PRN Reason: Protocol Last Admin: 05/28/18 17:39 Dose: 5 mg Brimonidine Tartrate (Alphagan 0.2% Opht) 1 drop OU BID [facility] Last Admin: 05/28/18 17:41 Dose: 1 drop Cholecalciferol (Vitamin D) 2,000 intlu PO DAILY [facility] Last Admin: 05/28/18 08:46 Dose: 2,000 intlu Ferrous Sulfate (Feosol) 325 mg PO BID [facility] Last Admin: 05/28/18 17:41 Dose: 325 mg Finasteride (Proscar) 5 mg PO HS [facility] Last Admin: 05/28/18 21:45 Dose: 5 mg Folic Acid (Folic Acid) 1 mg PO DAILY [facility] Last Admin: 05/28/18 08:46 Dose: 1 mg Home Med (Linaclotide [Linzess]) 145 mcg PO DAILY PRN PRN Reason: Constipation Lactulose (Enulose) 20 gm PO BID [facility] Last Admin: 05/28/18 17:38 Dose: 20 gm Latanoprost (Xalatan Opht) 1 drop OU HS [facility] Last Admin: 05/28/18 21:45 Dose: 1 drop Losartan Potassium (Cozaar) 50 mg PO BID [facility] Last Admin: 05/28/18 17:40 Dose: 50 mg Metoprolol Succinate (Toprol Xl) 50 mg PO BID [facility] Last Admin: 05/28/18 17:42 Dose: 50 mg Minoxidil (Minoxidil) 5 mg PO BID [facility] Last Admin: 05/28/18 17:40 Dose: 5 mg Montelukast Sodium (Singulair) 10 mg PO HS [facility] Last Admin: 05/28/18 21:45 Dose: 10 mg Potassium Chloride (K-Dur 20 Meq Er Tab) 40 meq PO BID [facility] Last Admin: 05/28/18 17:38 Dose: 40 meq Timolol Maleate (Timoptic 0.5% Ophth Soln) 1 drop OU BID [facility] Last Admin: 05/28/18 17:38 Dose: 1 drop Triamterene/HCTZ (Dyazide 25 Mg-37.5 Mg) 2 cap PO DAILY [facility] Last Admin: 05/28/18 08:44 Dose: 2 cap - Labs Labs: 05/28/18 04:20 05/29/18 04:20 PT 17.2 Seconds (9.8-13.1) H D 05/24/18 05:25 INR 1.5 (0.9-1.2) H D 05/24/18 05:25 APTT 63.7 Seconds (25.6-37.1) H D 05/24/18 09:00 Attending/Attestation - Attestation I have personally seen and examined this patient.: Yes I have fully participated in the care of the patient.: Yes I have reviewed all pertinent clinical information, including history, physical exam and plan: Yes
--- NOTE | 2018-05-27 10:12 | CP.PCM.PN ---
Subjective - Date & Time of Evaluation Date of Evaluation: 05/27/18 Time of Evaluation: 08:00 - Subjective Subjective: NO CHEST PAIN OR PALPITATIONS BREATHING BETTER Objective - Vital Signs/Intake and Output Vital Signs (last 24 hours): Temp Pulse Resp BP Pulse Ox 98.4 F 82 18 147/87 99 05/27/18 08:23 05/27/18 08:39 05/27/18 08:23 05/27/18 08:39 05/27/18 08:23 - Medications Medications: Current Medications Albuterol/Ipratropium (Duoneb 3 Mg/0.5 Mg (3 Ml) Ud) 3 ml INH RQ4 PRN PRN Reason: Shortness of Breath Last Admin: 05/23/18 11:49 Dose: 3 ml Alprazolam (Xanax) 0.5 mg PO TID PRN PRN Reason: Anxiety Last Admin: 05/24/18 00:15 Dose: 0.5 mg Apixaban (Eliquis) 5 mg PO BID [facility] PRN Reason: Protocol Last Admin: 05/27/18 08:40 Dose: 5 mg Brimonidine Tartrate (Alphagan 0.2% Opht) 1 drop OU BID [facility] Last Admin: 05/27/18 08:39 Dose: 1 drop Cholecalciferol (Vitamin D) 2,000 intlu PO DAILY [facility] Last Admin: 05/27/18 08:41 Dose: 2,000 intlu Ferrous Sulfate (Feosol) 325 mg PO BID [facility] Last Admin: 05/27/18 08:41 Dose: 325 mg Finasteride (Proscar) 5 mg PO HS [facility] Last Admin: 05/26/18 21:34 Dose: 5 mg Folic Acid (Folic Acid) 1 mg PO DAILY [facility] Last Admin: 05/26/18 08:32 Dose: 1 mg Home Med (Linaclotide [Linzess]) 145 mcg PO DAILY PRN PRN Reason: Constipation Lactulose (Enulose) 20 gm PO BID [facility] Last Admin: 05/27/18 08:41 Dose: 20 gm Latanoprost (Xalatan Opht) 1 drop OU HS [facility] Last Admin: 05/26/18 21:34 Dose: 1 drop Metoprolol Succinate (Toprol Xl) 50 mg PO BID [facility] Last Admin: 05/27/18 08:39 Dose: 50 mg Minoxidil (Minoxidil) 5 mg PO BID [facility] Last Admin: 05/27/18 08:42 Dose: 5 mg Montelukast Sodium (Singulair) 10 mg PO HS [facility] Last Admin: 05/26/18 21:34 Dose: 10 mg Potassium Chloride (K-Dur 20 Meq Er Tab) 40 meq PO BID [facility] Last Admin: 05/27/18 08:42 Dose: 40 meq Timolol Maleate (Timoptic 0.5% Oph Soln) 1 drop OU BID [facility] Last Admin: 05/27/18 08:40 Dose: 1 drop Triamterene/HCTZ (Dyazide 25 Mg-37.5 Mg) 2 cap PO DAILY [facility] Last Admin: 05/27/18 08:40 Dose: 2 cap Valsartan (Diovan) 160 mg PO BID [facility] Last Admin: 05/27/18 08:39 Dose: 160 mg - Labs Labs: 05/25/18 06:30 05/27/18 04:20 PT 17.2 Seconds (9.8-13.1) H D 05/24/18 05:25 INR 1.5 (0.9-1.2) H D 05/24/18 05:25 APTT 63.7 Seconds (25.6-37.1) H D 05/24/18 09:00 - Respiratory Exam Respiratory Exam: Decreased Breath Sounds - Cardiovascular Exam Cardiovascular Exam: REGULAR RHYTHM, +S1, +S2 - Extremities Exam Extremities Exam: Pedal Edema Assessment and Plan - Assessment and Plan (Free Text) Assessment: PULMONARY EMBOLUS CAD HYPERTENSION ASCENDING AORTIC ANEURYSM REPAIR COPD Plan: CONTINUE DIOVAN, DYAZIDE, METOPROLOL, MINOXIDIL AND ELIQUIS DR SAMUELS'S OFFICE CALLED AND MESSAGE LEFT TO INFORM THEM THAT THE PATIENT WAS SWITCHED FROM COUMADIN TO ELIQUIS
--- NOTE | 2018-05-27 10:13 | CP.PCM.PN ---
Subjective - Date & Time of Evaluation Date of Evaluation: 05/27/18 Time of Evaluation: 10:13 - Subjective Subjective: Appears stable on present regimen. Vital signs have been good except for elevated BP. He has been switched to Eliquis. He offers no complaints of chest pain or SOB. Dependant edema remains significant in both legs. Breath sounds are diminished bilaterally, but otherwise unremarkable. Plan for echocardiogram today. Objective - Vital Signs/Intake and Output Vital Signs (last 24 hours): Temp Pulse Resp BP Pulse Ox 98.4 F 82 18 147/87 99 05/27/18 08:23 05/27/18 08:39 05/27/18 08:23 05/27/18 08:39 05/27/18 08:23 Intake and Output: 05/26/18 05/27/18 23:59 11:59 Intake Total 1000 Balance 1000 - Medications Medications: Current Medications Albuterol/Ipratropium (Duoneb 3 Mg/0.5 Mg (3 Ml) Ud) 3 ml INH RQ4 PRN PRN Reason: Shortness of Breath Last Admin: 05/23/18 11:49 Dose: 3 ml Alprazolam (Xanax) 0.5 mg PO TID PRN PRN Reason: Anxiety Last Admin: 05/24/18 00:15 Dose: 0.5 mg Apixaban (Eliquis) 5 mg PO BID [facility] PRN Reason: Protocol Last Admin: 05/27/18 08:40 Dose: 5 mg Brimonidine Tartrate (Alphagan 0.2% Opht) 1 drop OU BID [facility] Last Admin: 05/27/18 08:39 Dose: 1 drop Cholecalciferol (Vitamin D) 2,000 intlu PO DAILY [facility] Last Admin: 05/27/18 08:41 Dose: 2,000 intlu Ferrous Sulfate (Feosol) 325 mg PO BID [facility] Last Admin: 05/27/18 08:41 Dose: 325 mg Finasteride (Proscar) 5 mg PO HS [facility] Last Admin: 05/26/18 21:34 Dose: 5 mg Folic Acid (Folic Acid) 1 mg PO DAILY [facility] Last Admin: 05/26/18 08:32 Dose: 1 mg Home Med (Linaclotide [Linzess]) 145 mcg PO DAILY PRN PRN Reason: Constipation Lactulose (Enulose) 20 gm PO BID [facility] Last Admin: 05/27/18 08:41 Dose: 20 gm Latanoprost (Xalatan Opht) 1 drop OU HS [facility] Last Admin: 05/26/18 21:34 Dose: 1 drop Metoprolol Succinate (Toprol Xl) 50 mg PO BID [facility] Last Admin: 05/27/18 08:39 Dose: 50 mg Minoxidil (Minoxidil) 5 mg PO BID [facility] Last Admin: 05/27/18 08:42 Dose: 5 mg Montelukast Sodium (Singulair) 10 mg PO HS [facility] Last Admin: 05/26/18 21:34 Dose: 10 mg Potassium Chloride (K-Dur 20 Meq Er Tab) 40 meq PO BID [facility] Last Admin: 05/27/18 08:42 Dose: 40 meq Timolol [facility] 1 drop OU BID [facility] Last Admin: 05/27/18 08:40 Dose: 1 drop Triamterene/HCTZ (Dyazide 25 Mg-37.5 Mg) 2 cap PO DAILY [facility] Last Admin: 05/27/18 08:40 Dose: 2 cap Valsartan (Diovan) 160 mg PO BID [facility] Last Admin: 05/27/18 08:39 Dose: 160 mg - Labs Labs: 05/25/18 06:30 05/27/18 04:20 PT 17.2 Seconds (9.8-13.1) H D 05/24/18 05:25 INR 1.5 (0.9-1.2) H D 05/24/18 05:25 APTT 63.7 Seconds (25.6-37.1) H D 05/24/18 09:00
--- NOTE | 2018-05-27 11:15 | CARD ---
APPROVED REPORT Date of service: 05/27/2018 EXAM: Two-dimensional and M-mode echocardiogram with Doppler and color Doppler. Other Information Quality : GoodRhythm : Pacemaker INDICATION Pulmonary Embolism 2D DIMENSIONS IVSd1.61 (0.7-1.1cm)LVDd5.21 (3.9-5.9cm) LVOT Diameter2.93 (1.8-2.4cm)PWd1.64 (0.7-1.1cm) IVSs1.47 (0.8-1.2cm)LVDs4.08 (2.5-4.0cm) FS (%) 21.6 %PWs1.74 (0.8-1.2cm) M-Mode DIMENSIONS Left Atrium (MM)3.47 (2.5-4.0cm)IVSd1.38 (0.7-1.1cm) Aortic Root4.09 (2.2-3.7cm)LVDd5.81 (4.0-5.6cm) Aortic Cusp Exc.1.94 (1.5-2.0cm)PWd1.13 (0.7-1.1cm) IVSs1.69 cmFS (%) 31 % LVDs4.00 (2.0-3.8cm)PWs2.00 cm Aortic Valve AoV Peak Vmlscpdz826.1cm/sAoV VTI23.0cmAO Peak GR.6mmHg LVOT Peak Advsphkp19.2cm/sLVOT VTI17.19cmAO Mean GR.4mmHg CALLUM (VMAX)2.90iu3LJR (VTI)2.41qg5RQ P 1/2 [id number] Mitral Valve MV E Qfyuicck41.8cm/sMV DECEL [id number] A Yktoezxb13.4cm/s MV HWL34ckD/A ratio2.1MVA (PHT)2.63cm2 TDI Lateral E' Peak V9.37cm/sMedial E' Peak V6.84cm/sE/Lateral E'9.7 E/Medial E'13.3 Pulmonary Valve PV Peak Bwsmytax492.2cm/s Tricuspid Valve TR Peak Uwgifcyk427co/sRAP HYAALLHC10xtSoRN Peak Gr.42mmHg [id number] LEFT VENTRICLE The left ventricle is normal size. There is normal left ventricular wall thickness. The left ventricular function is normal. The left ventricular ejection fraction is within the normal range. The Ejection Fraction is 60-65%. There is normal LV segmental wall motion. The left ventricular diastolic function is normal. RIGHT VENTRICLE The right ventricle is mildly to moderately dilated. The right ventricle is borderline hypertrophied. Systolic function is borderline reduced. ATRIA The left atrium is borderline dilated. The right atrium is moderately dilated. The interatrial septum is intact with no evidence for an atrial septal defect. AORTIC VALVE The aortic valve is mildly to moderately sclerotic. There is mild aortic regurgitation. There is no aortic valvular stenosis. MITRAL VALVE The mitral valve is thickened but opens well. There is no evidence of mitral valve prolapse. There is mild mitral valve stenosis. Mitral regurgitation is moderate. TRICUSPID VALVE The tricuspid valve leaflets are thickened , but open well. There is moderate to severe tricuspid regurgitation. Right ventricular systolic pressure is estimated at 50-60 mmHg. There is mild-moderate pulmonary hypertension. PULMONIC VALVE The pulmonary valve is normal in structure. There is moderate pulmonic valvular regurgitation. GREAT VESSELS The aortic root is normal in size. The IVC is plethoric. PERICARDIAL EFFUSION The pericardium appears normal. <Conclusion> The right ventricle is mildly to moderately dilated. Systolic function is borderline reduced. The right atrium is moderately dilated. Mitral regurgitation is moderate. There is moderate to severe tricuspid regurgitation. Right ventricular systolic pressure is estimated at 50-60 mmHg. There is mild-moderate pulmonary hypertension. There is moderate pulmonic valvular regurgitation. The IVC is plethoric. Right sided strain as evident from dilated RV and RA with mildly reduced RV systolic function.
--- NOTE | 2018-05-27 11:56 | US ---
Date of service: 05/25/2018 PROCEDURE: Ultrasonography renal arterial evaluation HISTORY: enlarging right kidney lesion COMPARISON: 05/24/2018 CT abdomen and pelvis. Summary of findings on the comparison examination: Multiple bilateral low-attenuation lesions in this kidneys. There is interval increase in size FX lytic lesion in the upper pole of the right kidney 1.3 cm. TECHNIQUE: Real-time ultrasonography evaluation of the renal arteries were performed. Comparison is made to the aorta. Report prepared by sterile processing technologist. FINDINGS: AORTA: Patent. Peak systolic velocity 55.6 centimeters/second RIGHT RENAL ARTERY: Renal artery to aorta ratio: 0.5 * Proximal segment: Patent. Peak systolic velocity 26.6 centimeters/second * Mid segment: Patent. Peak systolic velocity 25.6 centimeters/second * Distal segment: Patent. Peak systolic velocity 30.5 documentation of multiple bilateral renal cysts. Centimeters/second Other findings: Right Kidney measures approximately 12.3 centimeters. LEFT RENAL ARTERY: Renal artery to aorta ratio: 1.0 * Proximal segment: Patent. Peak systolic velocity 53.3 centimeters/second * Mid segment: Patent. Peak systolic velocity 47.7 centimeters/second * Distal segment: Patent. Peak systolic velocity 36.0 centimeters/second Other findings: Left Kidney measures approximately 10.9 centimeters. IMPRESSION: Limited evaluation. No definite hemodynamically significant stenosis involving the renal arteries as visualized. (Please note that the proximal left peroneal artery was not visualized. Renal cysts/masses better visualized on recent renal ultrasound. Concordant findings (preliminary report) provided by [email or web address].
[2018-05-27] MEDS: Latanoprost 0.005% Opht SOUTION OU SCH (21:21)
[2018-05-28 06:01] LABS: HEMOGLOBIN 9.5 g/dL (12.0-18.0); MEAN CELL VOLUME 90.1 fl (80.0-94.0); MEAN CORPUSCULAR HEMOGLOBIN 29.7 pg (27.0-31.0); MEAN CORPUSCULAR HGB CONC 32.9 g/dL (33.0-37.0); RBC 3.2 Mil/uL (4.40-5.90); RED CELL DISTRIBUTION WIDTH 16.5 % (11.5-14.5); WHITE BLOOD COUNT 4.7 K/uL (4.8-10.8)
[2018-05-28 06:17] LABS: BLOOD UREA NITROGEN 12 mg/dl (9-20); CALCIUM 9.4 mg/dL (8.4-10.2); GFR AFRICAN-AMERICAN > 60; GFR NON-AFRICAN AMERICAN > 60
--- NOTE | 2018-05-28 08:04 | CP.PCM.PN ---
<Edwin Rodriguez - Last Filed: 05/28/18 14:21> Subjective - Date & Time of Evaluation Date of Evaluation: 05/28/18 Time of Evaluation: 07:25 - Subjective Subjective: Patient evaluated and examined bedside in the morning. No acute distress. Denies any SOB, dizziness, weakness, headache or N/V/D. Tolerating diet PO. Objective - Vital Signs/Intake and Output Vital Signs (last 24 hours): Temp Pulse Resp BP Pulse Ox 97.4 F L 67 18 146/90 98 05/28/18 05:02 05/28/18 05:02 05/28/18 05:02 05/28/18 05:02 05/28/18 05:02 - Medications Medications: Current Medications Albuterol/Ipratropium (Duoneb 3 Mg/0.5 Mg (3 Ml) Ud) 3 ml INH RQ4 PRN PRN Reason: Shortness of Breath Last Admin: 05/23/18 11:49 Dose: 3 ml Alprazolam (Xanax) 0.5 mg PO TID PRN PRN Reason: Anxiety Last Admin: 05/24/18 00:15 Dose: 0.5 mg Apixaban (Eliquis) 5 mg PO BID [facility] PRN Reason: Protocol Last Admin: 05/27/18 17:39 Dose: 5 mg Brimonidine Tartrate (Alphagan 0.2% Opht) 1 drop OU BID [facility] Last Admin: 05/27/18 17:37 Dose: 1 drop Cholecalciferol (Vitamin D) 2,000 intlu PO DAILY [facility] Last Admin: 05/27/18 08:41 Dose: 2,000 intlu Ferrous Sulfate (Feosol) 325 mg PO BID [facility] Last Admin: 05/27/18 17:37 Dose: 325 mg Finasteride (Proscar) 5 mg PO HS [facility] Last Admin: 05/27/18 21:21 Dose: 5 mg Folic Acid (Folic Acid) 1 mg PO DAILY [facility] Last Admin: 05/27/18 12:34 Dose: 1 mg Home Med (Linaclotide [Linzess]) 145 mcg PO DAILY PRN PRN Reason: Constipation Lactulose (Enulose) 20 gm PO BID [facility] Last Admin: 05/27/18 17:39 Dose: 20 gm Latanoprost (Xalatan Opht) 1 drop OU HS [facility] Last Admin: 05/27/18 21:21 Dose: 1 drop Metoprolol Succinate (Toprol Xl) 50 mg PO BID [facility] Last Admin: 05/27/18 17:38 Dose: 50 mg Minoxidil (Minoxidil) 5 mg PO BID [facility] Last Admin: 05/27/18 17:39 Dose: 5 mg Montelukast Sodium (Singulair) 10 mg PO HS [facility] Last Admin: 05/27/18 21:21 Dose: 10 mg Potassium Chloride (K-Dur 20 Meq Er Tab) 40 meq PO BID [facility] Last Admin: 05/27/18 17:39 Dose: 40 meq Timolol Maleate (Timoptic 0.5% Oph Soln) 1 drop OU BID [facility] Last Admin: 05/27/18 17:38 Dose: 1 drop Triamterene/HCTZ (Dyazide 25 Mg-37.5 Mg) 2 cap PO DAILY [facility] Last Admin: 05/27/18 08:40 Dose: 2 cap Valsartan (Diovan) 160 mg PO BID [facility] Last Admin: 05/27/18 17:37 Dose: 160 mg - Labs Labs: 05/28/18 04:20 05/28/18 04:20 PT 17.2 Seconds (9.8-13.1) H D 05/24/18 05:25 INR 1.5 (0.9-1.2) H D 05/24/18 05:25 APTT 63.7 Seconds (25.6-37.1) H D 05/24/18 09:00 - Constitutional Appears: Well, Non-toxic, No Acute Distress - Head Exam Head Exam: ATRAUMATIC, NORMAL INSPECTION, NORMOCEPHALIC - Eye Exam Eye Exam: EOMI, Normal appearance, PERRL - ENT Exam ENT Exam: Mucous Membranes Moist, Normal Exam - Neck Exam Neck Exam: Normal Inspection - Respiratory Exam Respiratory Exam: Clear to Ausculation Bilateral, NORMAL BREATHING PATTERN. absent: Rales, Rhonchi, Wheezes, Respiratory Distress - Cardiovascular Exam Cardiovascular Exam: REGULAR RHYTHM, +S1, +S2. absent: Murmur - GI/Abdominal Exam GI & Abdominal Exam: Soft, Normal Bowel Sounds - Neurological Exam Neurological Exam: Alert, Awake, Oriented x3 - Psychiatric Exam Psychiatric exam: Normal Affect, Normal Mood - Skin Skin Exam: Dry, Normal Color, Warm Assessment and Plan - Assessment and Plan (Free Text) Assessment: 72 yo M with PMHx of HTN, CAD, Aortic aneurysm and valve repair, Afib, S/P cardiac ablation, Pacemaker, Sleep apnea and OA admitted with c/o SHIPLEY and Dx with PE on CTA while taking warfarin with therapeutic INR. Plan: (1) Pulmonary embolism -CTA 05/22/18: (Impression 1-Acute PE in the right lower lobar pulmonary artery 2 -Linear atelectasis in the right lung base is likely due to elevation of the right on the right hemidiaphragm, however pulmonary infarction is not excluded given the associated PE. (see full report) -Troponin x 2 negative -Benito LE Dupplex: no evidence of DVT -CXR reported as mild cardiomegaly -EKG (05/22/18):sinus rhythm with PVC,with RBBB, HR 93 -Echocardiogram: EF 60-65%, RV mild-moderately dilated, RA moderately dilated, moderate MR, Reduced RV systolic function. -Eliquis 5 po bid initiated on 05/24/18 after receiving initial treatment with heparin drip -Telemetry ekg monitor -Dr. Garcia ordered V/Q scan to R/O possible occult emboli, Result: Low probability PE. -Cleared by Dr. Graves -Documentation Designer consult Dr. Read (2) A-fib -controlled -initiated Eliquis 5 po bid on 05/24/18 -warfarin was D/C at this time, Pt had PE on warfarin -Cardiology consult on board (3) Hypokalemia -Resolved(K+ 4.0 on 05/28/18, Previous K+ 3.6>3.4>3.0>3.2) -resume potassium PO 40 mEq po bid -f/u CBC, BMP (4) HTN (hypertension) -Continue Valsartan 160 po bid -Metoprolol xl 50 po bid -dyazide (25-37.5) 2 caps po qd -minoxidil (5) DVT prophylaxis -eliquis 5 po bid <Chapincito Rod - Last Filed: 05/30/18 06:53> Objective - Vital Signs/Intake and Output Vital Signs (last 24 hours): Temp Pulse Resp BP Pulse Ox 97.8 F 94 H 18 145/97 H 100 05/30/18 05:12 05/30/18 05:12 05/30/18 05:12 05/30/18 05:12 05/30/18 05:12 - Medications Medications: Current Medications Albuterol/Ipratropium (Duoneb 3 Mg/0.5 Mg (3 Ml) Ud) 3 ml INH RQ4 PRN PRN Reason: Shortness of Breath Last Admin: 05/23/18 11:49 Dose: 3 ml Apixaban (Eliquis) 5 mg PO BID [facility] PRN Reason: Protocol Last Admin: 05/29/18 16:50 Dose: 5 mg Brimonidine Tartrate (Alphagan 0.2% Opht) 1 drop OU BID [facility] Last Admin: 05/29/18 16:49 Dose: 1 drop Cholecalciferol (Vitamin D) 2,000 intlu PO DAILY [facility] Last Admin: 05/29/18 08:44 Dose: 2,000 intlu Ferrous Sulfate (Feosol) 325 mg PO BID [facility] Last Admin: 05/29/18 16:50 Dose: 325 mg Finasteride (Proscar) 5 mg PO HS [facility] Last Admin: 05/29/18 21:37 Dose: 5 mg Folic Acid (Folic Acid) 1 mg PO DAILY [facility] Last Admin: 05/29/18 08:43 Dose: 1 mg Home Med (Linaclotide [Linzess]) 145 mcg PO DAILY PRN PRN Reason: Constipation Lactulose (Enulose) 20 gm PO BID [facility] Last Admin: 05/29/18 16:49 Dose: 20 gm Latanoprost (Xalatan Opht) 1 drop OU [facility] Last Admin: 05/29/18 21:38 Dose: 1 drop Losartan Potassium (Cozaar) 100 mg PO DAILY [facility] Metoprolol Succinate (Toprol Xl) 50 mg PO BID [facility] Last Admin: 05/29/18 16:51 Dose: 50 mg Minoxidil (Minoxidil) 5 mg PO BID [facility] Last Admin: 05/29/18 16:49 Dose: 5 mg Montelukast Sodium (Singulair) 10 mg PO HS [facility] Last Admin: 05/29/18 21:37 Dose: 10 mg Potassium Chloride (K-Dur 20 Meq Er Tab) 40 meq PO BID [facility] Last Admin: 05/29/18 16:49 Dose: 40 meq Timolol Maleate (Timoptic 0.5% Ophth Soln) 1 drop OU BID [facility] Last Admin: 05/29/18 16:49 Dose: 1 drop Triamterene/HCTZ (Dyazide 25 Mg-37.5 Mg) 2 cap PO DAILY [facility] Last Admin: 05/29/18 08:41 Dose: 2 cap - Labs Labs: 05/28/18 04:20 05/29/18 04:20 PT 17.2 Seconds (9.8-13.1) H D 05/24/18 05:25 INR 1.5 (0.9-1.2) H D 05/24/18 05:25 APTT 63.7 Seconds (25.6-37.1) H D 05/24/18 09:00 Attending/Attestation - Attestation I have personally seen and examined this patient.: Yes I have fully participated in the care of the patient.: Yes I have reviewed all pertinent clinical information, including history, physical exam and plan: Yes
[2018-05-28] MEDS: Metoprolol Succinate 50 mg XL Tab PO SCH ×2 (08:44→17:42)
[2018-05-28] MEDS: hydroCHLOROthiazide-Triamterene 25 mg-37.5 mg Cap UD PO SCH (08:44)
[2018-05-28] MEDS: Brimonidine 0.2% 50 DROP/5 ML BOTTLE OU SCH ×2 (08:45→17:41)
[2018-05-28] MEDS: Cholecalciferol 1,000 INTLU TAB PO SCH (08:46)
[2018-05-28] MEDS: Potassium Chloride 20 mEq ER Tab PO SCH ×2 (08:46→17:38)
--- NOTE | 2018-05-28 09:31 | CP.PCM.PN ---
Subjective - Date & Time of Evaluation Date of Evaluation: 05/28/18 Time of Evaluation: 09:31 - Subjective Subjective: Seen on morning rounds. Ambulating in room and hallway. Vital signs have been stable, BP has been elevated. Spoke with cardiology regarding results of echo. Dr Graves will reach out to the patient's private inbound customer service agent to inform him and inquire about any recent echo's. Cardiac enzymes were checked on admission, and these were negative. V/Q lung scan will be requested in the meantime looking for possible CTEPH. He has been stable on Eliquis. His LE's have remained ++ edema on the left, +++ on the right. No cyanosis, no calf tenderness on palpation. Objective - Vital Signs/Intake and Output Vital Signs (last 24 hours): Temp Pulse Resp BP Pulse Ox 98.2 F 104 H 20 156/108 H 98 05/28/18 08:28 05/28/18 08:44 05/28/18 08:28 05/28/18 08:44 05/28/18 08:28 - Medications Medications: Current Medications Albuterol/Ipratropium (Duoneb 3 Mg/0.5 Mg (3 Ml) Ud) 3 ml INH RQ4 PRN PRN Reason: Shortness of Breath Last Admin: 05/23/18 11:49 Dose: 3 ml Alprazolam (Xanax) 0.5 mg PO TID PRN PRN Reason: Anxiety Last Admin: 05/24/18 00:15 Dose: 0.5 mg Apixaban (Eliquis) 5 mg PO BID [facility] PRN Reason: Protocol Last Admin: 05/28/18 08:44 Dose: 5 mg Brimonidine Tartrate (Alphagan 0.2% Opht) 1 drop OU BID [facility] Last Admin: 05/28/18 08:45 Dose: 1 drop Cholecalciferol (Vitamin D) 2,000 intlu PO DAILY [facility] Last Admin: 05/28/18 08:46 Dose: 2,000 intlu Ferrous Sulfate (Feosol) 325 mg PO BID [facility] Last Admin: 05/28/18 08:45 Dose: 325 mg Finasteride (Proscar) 5 mg PO HS [facility] Last Admin: 05/27/18 21:21 Dose: 5 mg Folic Acid (Folic Acid) 1 mg PO DAILY [facility] Last Admin: 05/28/18 08:46 Dose: 1 mg Home Med (Linaclotide [Linzess]) 145 mcg PO DAILY PRN PRN Reason: Constipation Lactulose (Enulose) 20 gm PO BID [facility] Last Admin: 05/28/18 08:47 Dose: 20 gm Latanoprost (Xalatan Opht) 1 drop OU HS [facility] Last Admin: 05/27/18 21:21 Dose: 1 drop Metoprolol Succinate (Toprol Xl) 50 mg PO BID [facility] Last Admin: 05/28/18 08:44 Dose: 50 mg Minoxidil (Minoxidil) 5 mg PO BID [facility] Last Admin: 05/28/18 08:44 Dose: 5 mg Montelukast Sodium (Singulair) 10 mg PO HS [facility] Last Admin: 05/27/18 21:21 Dose: 10 mg Potassium Chloride (K-Dur 20 Meq Er Tab) 40 meq PO BID [facility] Last Admin: 05/28/18 08:46 Dose: 40 meq Timolol Maleate (Timoptic 0.5% [facility]) 1 drop OU BID [facility] Last Admin: 05/28/18 08:45 Dose: 1 drop Triamterene/HCTZ (Dyazide 25 Mg-37.5 Mg) 2 cap PO DAILY [facility] Last Admin: 05/28/18 08:44 Dose: 2 cap Valsartan (Diovan) 160 mg PO BID [facility] Last Admin: 05/28/18 08:44 Dose: 160 mg - Labs Labs: 05/28/18 04:20 05/28/18 04:20 PT 17.2 Seconds (9.8-13.1) H D 05/24/18 05:25 INR 1.5 (0.9-1.2) H D 05/24/18 05:25 APTT 63.7 Seconds (25.6-37.1) H D 05/24/18 09:00
--- NOTE | 2018-05-28 10:34 | CP.PCM.PN ---
Subjective - Date & Time of Evaluation Date of Evaluation: 05/28/18 Time of Evaluation: 08:45 - Subjective Subjective: NO CHEST PAIN BREATHING BETTER Objective - Vital Signs/Intake and Output Vital Signs (last 24 hours): Temp Pulse Resp BP Pulse Ox 98.2 F 104 H 20 156/108 H 98 05/28/18 08:28 05/28/18 08:44 05/28/18 08:28 05/28/18 08:44 05/28/18 08:28 - Medications Medications: Current Medications Albuterol/Ipratropium (Duoneb 3 Mg/0.5 Mg (3 Ml) Ud) 3 ml INH RQ4 PRN PRN Reason: Shortness of Breath Last Admin: 05/23/18 11:49 Dose: 3 ml Alprazolam (Xanax) 0.5 mg PO TID PRN PRN Reason: Anxiety Last Admin: 05/24/18 00:15 Dose: 0.5 mg Apixaban (Eliquis) 5 mg PO BID [facility] PRN Reason: Protocol Last Admin: 05/28/18 08:44 Dose: 5 mg Brimonidine Tartrate (Alphagan 0.2% Opht) 1 drop OU BID [facility] Last Admin: 05/28/18 08:45 Dose: 1 drop Cholecalciferol (Vitamin D) 2,000 intlu PO DAILY [facility] Last Admin: 05/28/18 08:46 Dose: 2,000 intlu Ferrous Sulfate (Feosol) 325 mg PO BID [facility] Last Admin: 05/28/18 08:45 Dose: 325 mg Finasteride (Proscar) 5 mg PO HS [facility] Last Admin: 05/27/18 21:21 Dose: 5 mg Folic Acid (Folic Acid) 1 mg PO DAILY [facility] Last Admin: 05/28/18 08:46 Dose: 1 mg Home Med (Linaclotide [Linzess]) 145 mcg PO DAILY PRN PRN Reason: Constipation Lactulose (Enulose) 20 gm PO BID [facility] Last Admin: 05/28/18 08:47 Dose: 20 gm Latanoprost (Xalatan Opht) 1 drop OU [facility] Last Admin: 05/27/18 21:21 Dose: 1 drop Metoprolol Succinate (Toprol Xl) 50 mg PO BID [facility] Last Admin: 05/28/18 08:44 Dose: 50 mg Minoxidil (Minoxidil) 5 mg PO BID [facility] Last Admin: 05/28/18 08:44 Dose: 5 mg Montelukast Sodium (Singulair) 10 mg PO HS [facility] Last Admin: 05/27/18 21:21 Dose: 10 mg Potassium Chloride (K-Dur 20 Meq Er Tab) 40 meq PO BID [facility] Last Admin: 05/28/18 08:46 Dose: 40 meq Timolol Maleate (Timoptic 0.5% Ophth Soln) 1 drop OU BID [facility] Last Admin: 05/28/18 08:45 Dose: 1 drop Triamterene/HCTZ (Dyazide 25 Mg-37.5 Mg) 2 cap PO DAILY [facility] Last Admin: 05/28/18 08:44 Dose: 2 cap Valsartan (Diovan) 160 mg PO BID [facility] Last Admin: 05/28/18 08:44 Dose: 160 mg - Labs Labs: 05/28/18 04:20 05/28/18 04:20 PT 17.2 Seconds (9.8-13.1) H D 05/24/18 05:25 INR 1.5 (0.9-1.2) H D 05/24/18 05:25 APTT 63.7 Seconds (25.6-37.1) H D 05/24/18 09:00 - Respiratory Exam Respiratory Exam: Clear to Ausculation Bilateral - Cardiovascular Exam Cardiovascular Exam: REGULAR RHYTHM, +S1, +S2 - Extremities Exam Extremities Exam: Pedal Edema - Additional Findings Additional findings: ENGINE CLEANER NSR ECHO NORMAL LV FUNCTION, RV AND RA ~ MODERATELY DILATED, SEVERE TR, RV SYSTOLIC PRESSURE IS 50-60 MMHG Assessment and Plan - Assessment and Plan (Free Text) Assessment: PULMONARY EMBOLUS CAD HYPERTENSION COPD Plan: THE PATIENT WAS DISCUSSED WITH DR WARREN AND HE IS DOING A V/Q SCAN I DISCUSSED THE PATIENT WITH DR SAMUELS WHO STATES HE AGREES WITH ELIQUIS BUT WOULD ALSO HAVE HEMATOLOGY FOLLOW FOR A POSSIBLE HYPERCOAGULATION PROBLEM. HE DOES NOT RECOMMEND A RIGHT HEART CATH FOR THROMBOLYTIC TREATMENT AT THIS TIME. CONTINUE OTHER [place] RESIDENT SPOKEN TO TO HAVE HEMATOLOGY FU
--- NOTE | 2018-05-28 13:33 | NM ---
Date of service: 05/28/2018 COMPARISON: CT angiography chest 05/22/2018 TECHNIQUE: 42.200 mCi technetium 99-m DTPA aerosol. 6.20 mCI technetium 99-m MAA administered intravenously. FINDINGS: VENTILATION COMPONENT: Normal. PERFUSION COMPONENT: Normal. IMPRESSION: Lowprobability ventilation perfusion scan for pulmonary embolism.
--- NOTE | 2018-05-28 13:48 | RAD ---
Date of service: 05/28/2018 HISTORY: Pulmonary embolism COMPARISON: 05/22/2018 TECHNIQUE: Chest PA and lateral FINDINGS: LUNGS: No active pulmonary disease. PLEURA: No significant pleural effusion identified. No pneumothorax apparent. CARDIOVASCULAR: Permanent pacemaker. Sternotomy wires. OSSEOUS STRUCTURES: No significant abnormalities. VISUALIZED UPPER ABDOMEN: Normal. OTHER FINDINGS: None. IMPRESSION: No active disease.
[2018-05-28] MEDS: Latanoprost 0.005% Opht SOUTION OU SCH (21:45)
[2018-05-29 06:24] LABS: BLOOD UREA NITROGEN 15 mg/dl (9-20); CALCIUM 9.1 mg/dL (8.4-10.2); GFR AFRICAN-AMERICAN > 60; GFR NON-AFRICAN AMERICAN > 60
[2018-05-29] MEDS: Brimonidine 0.2% 50 DROP/5 ML BOTTLE OU SCH ×2 (08:38→16:49)
[2018-05-29] MEDS: Metoprolol Succinate 50 mg XL Tab PO SCH ×2 (08:39→16:51)
[2018-05-29] MEDS: Potassium Chloride 20 mEq ER Tab PO SCH ×2 (08:40→16:49)
[2018-05-29] MEDS: hydroCHLOROthiazide-Triamterene 25 mg-37.5 mg Cap UD PO SCH (08:41)
[2018-05-29] MEDS: Cholecalciferol 1,000 INTLU TAB PO SCH (08:44)
--- NOTE | 2018-05-29 08:48 | CP.PCM.PN ---
<Edwin Rodriguez - Last Filed: 05/29/18 13:54> Subjective - Date & Time of Evaluation Date of Evaluation: 05/29/18 Time of Evaluation: 07:20 - Subjective Subjective: Pt evaluated and examined bedside in the morning. No acute events ovenight. NAD. Denies any CP, SOB, leg swelling, headache, N/V/D. Dr. Read to be consulted for hypercoagulable disorder. Objective - Vital Signs/Intake and Output Vital Signs (last 24 hours): Temp Pulse Resp BP Pulse Ox 97.5 F L 81 20 146/103 H 100 05/29/18 07:48 05/29/18 08:41 05/29/18 07:48 05/29/18 08:41 05/29/18 07:48 - Medications Medications: Current Medications Albuterol/Ipratropium (Duoneb 3 Mg/0.5 Mg (3 Ml) Ud) 3 ml INH RQ4 PRN PRN Reason: Shortness of Breath Last Admin: 05/23/18 11:49 Dose: 3 ml Alprazolam (Xanax) 0.5 mg PO TID PRN PRN Reason: Anxiety Last Admin: 05/24/18 00:15 Dose: 0.5 mg Apixaban (Eliquis) 5 mg PO BID [facility] PRN Reason: Protocol Last Admin: 05/29/18 08:43 Dose: 5 mg Brimonidine Tartrate (Alphagan 0.2% Opht) 1 drop OU BID [facility] Last Admin: 05/29/18 08:38 Dose: 1 drop Cholecalciferol (Vitamin D) 2,000 intlu PO DAILY [facility] Last Admin: 05/29/18 08:44 Dose: 2,000 intlu Ferrous Sulfate (Feosol) 325 mg PO BID [facility] Last Admin: 05/29/18 08:38 Dose: 325 mg Finasteride (Proscar) 5 mg PO HS [facility] Last Admin: 05/28/18 21:45 Dose: 5 mg Folic Acid (Folic Acid) 1 mg PO DAILY [facility] Last Admin: 05/29/18 08:43 Dose: 1 mg Home Med (Linaclotide [Linzess]) 145 mcg PO DAILY [facility]N PRN Reason: Constipation Lactulose (Enulose) 20 gm PO BID [facility] Last Admin: 05/29/18 08:38 Dose: 20 gm Latanoprost (Xalatan Opht) 1 drop OU HS [facility] Last Admin: 05/28/18 21:45 Dose: 1 drop Losartan Potassium (Cozaar) 50 mg PO BID [facility] Last Admin: 05/29/18 08:41 Dose: 50 mg Metoprolol Succinate (Toprol Xl) 50 mg PO BID [facility] Last Admin: 05/29/18 08:39 Dose: 50 mg Minoxidil (Minoxidil) 5 mg PO BID [facility] Last Admin: 05/29/18 08:42 Dose: 5 mg Montelukast Sodium (Singulair) 10 mg PO HS [facility] Last Admin: 05/28/18 21:45 Dose: 10 mg Potassium Chloride (K-Dur 20 Meq Er Tab) 40 meq PO BID [facility] Last Admin: 05/29/18 08:40 Dose: 40 meq Timolol Maleate (Timoptic 0.5% [facility] Soln) 1 drop OU BID [facility] Last Admin: 05/29/18 08:39 Dose: 1 drop Triamterene/HCTZ (Dyazide 25 Mg-37.5 Mg) 2 cap PO DAILY [facility] Last Admin: 05/29/18 08:41 Dose: 2 cap - Labs Labs: 05/28/18 04:20 05/29/18 04:20 PT 17.2 Seconds (9.8-13.1) H D 05/24/18 05:25 INR 1.5 (0.9-1.2) H D 05/24/18 05:25 APTT 63.7 Seconds (25.6-37.1) H D 05/24/18 09:00 - Constitutional Appears: Well, Non-toxic, No Acute Distress - Head Exam Head Exam: ATRAUMATIC, NORMAL INSPECTION, NORMOCEPHALIC - Eye Exam Eye Exam: EOMI, Normal appearance Pupil Exam: NORMAL ACCOMODATION, PERRL - ENT Exam ENT Exam: Mucous Membranes Moist, Normal Exam - Respiratory Exam Respiratory Exam: Clear to Ausculation Bilateral, NORMAL BREATHING PATTERN - Cardiovascular Exam Cardiovascular Exam: REGULAR RHYTHM, +S1, +S2. absent: Murmur - GI/Abdominal Exam GI & Abdominal Exam: Soft, Normal Bowel Sounds - Extremities Exam Extremities Exam: absent: Calf Tenderness - Neurological Exam Neurological Exam: Alert, Awake, Oriented x3 - Psychiatric Exam Psychiatric exam: Normal Affect, Normal Mood - Skin Skin Exam: Dry, Intact, Normal Color, Warm Assessment and Plan - Assessment and Plan (Free Text) Assessment: 72 yo M with PMHx of HTN, CAD, Aortic aneurysm and valve repair, Afib, S/P cardiac ablation, Pacemaker, Sleep apnea and OA admitted with c/o SHIPLEY and Dx with PE on CTA while taking warfarin with therapeutic INR. Plan: (1) Pulmonary embolism -CTA 05/22/18: (Impression 1-Acute PE in the right lower lobar pulmonary artery 2 -Linear atelectasis in the right lung base is likely due to elevation of the right on the right hemidiaphragm, however pulmonary infarction is not excluded given the associated PE. (see full report) -Troponin x 2 negative -Benito LE Dupplex: no evidence of DVT -CXR reported as mild cardiomegaly -EKG (05/22/18):sinus rhythm with PVC,with RBBB, HR 93 -Echocardiogram: EF 60-65%, RV mild-moderately dilated, RA moderately dilated, moderate MR, Reduced RV systolic function. -Echocardiography ruled out CHF. RV dilatation most likely due to pulmonary HTN. No SOB or leg swelling. -Eliquis 5 po bid initiated on 05/24/18 after receiving initial treatment with heparin drip -Telemetry panel monitor, NSR -Dr. Garcia ordered V/Q scan to R/O possible occult emboli, Result: Low probability PE. -Cardiology consult: Dr. Kaur cleared. Waiting for lead pastor evaluation. -Restaurant Delivery Driver consult with Dr. Read for hypercoagulable disorder (2) A-fib -controlled -initiated Eliquis 5 po bid on 05/24/18 -warfarin was D/C at this time, Pt had PE on warfarin -Cardiology consult on board (3) Hypokalemia -K+ 3.5 on 05/29/18, Previous K+ 4.0>3.6>3.4>3.0>3.2) - As per Dr. Calix, pt has H/O chronic hypokelemia and K+ fluctuation. -resume potassium PO 40 mEq po bid -f/u CBC, BMP (4) HTN (hypertension) -Valsartan switched to Cozzar 50 PO BID due to recall. -Metoprolol xl 50 po bid -dyazide (25-37.5) 2 caps po qd -minoxidil (5) DVT prophylaxis -eliquis 5 po bid <Jluiocesar Calix - Last Filed: 05/31/18 06:43> Objective - Vital Signs/Intake and Output Vital Signs (last 24 hours): Temp Pulse Resp BP Pulse Ox 97.5 F L 110 H 20 143/91 H 97 05/30/18 08:28 05/30/18 09:00 05/30/18 08:28 05/30/18 08:28 05/30/18 08:28 - Labs Labs: 05/30/18 10:06 05/30/18 10:06 PT 14.8 Seconds (9.8-13.1) H 05/30/18 10:06 INR 1.3 (0.9-1.2) H 05/30/18 10:06 APTT 37.6 Seconds (25.6-37.1) H 05/30/18 10:06 Attending/Attestation - Attestation I have personally seen and examined this patient.: Yes I have fully participated in the care of the patient.: Yes I have reviewed all pertinent clinical information, including history, physical exam and plan: Yes
--- NOTE | 2018-05-29 09:20 | CP.PCM.PN ---
Subjective - Date & Time of Evaluation Date of Evaluation: 05/29/18 Time of Evaluation: 09:00 - Subjective Subjective: NO CHEST PAIN BREATHING BETTER Objective - Vital Signs/Intake and Output Vital Signs (last 24 hours): Temp Pulse Resp BP Pulse Ox 97.5 F L 81 20 146/103 H 100 05/29/18 07:48 05/29/18 08:41 05/29/18 07:48 05/29/18 08:41 05/29/18 07:48 - Medications Medications: Current Medications Albuterol/Ipratropium (Duoneb 3 Mg/0.5 Mg (3 Ml) Ud) 3 ml INH RQ4 PRN PRN Reason: Shortness of Breath Last Admin: 05/23/18 11:49 Dose: 3 ml Alprazolam (Xanax) 0.5 mg PO TID PRN PRN Reason: Anxiety Last Admin: 05/24/18 00:15 Dose: 0.5 mg Apixaban (Eliquis) 5 mg PO BID [facility] PRN Reason: Protocol Last Admin: 05/29/18 08:43 Dose: 5 mg Brimonidine Tartrate (Alphagan 0.2% Opht) 1 drop OU BID [facility] Last Admin: 05/29/18 08:38 Dose: 1 drop Cholecalciferol (Vitamin D) 2,000 intlu PO DAILY [facility] Last Admin: 05/29/18 08:44 Dose: 2,000 intlu Ferrous Sulfate (Feosol) 325 mg PO BID [facility] Last Admin: 05/29/18 08:38 Dose: 325 mg Finasteride (Proscar) 5 mg PO HS [facility] Last Admin: 05/28/18 21:45 Dose: 5 mg Folic Acid (Folic Acid) 1 mg PO DAILY [facility] Last Admin: 05/29/18 08:43 Dose: 1 mg Home Med (Linaclotide [Linzess]) 145 mcg PO DAILY PRN PRN Reason: Constipation Lactulose (Enulose) 20 gm PO BID [facility] Last Admin: 05/29/18 08:38 Dose: 20 gm Latanoprost (Xalatan Opht) 1 drop OU [facility] Last Admin: 05/28/18 21:45 Dose: 1 drop Losartan Potassium (Cozaar) 50 mg PO BID [facility] Last Admin: 05/29/18 08:41 Dose: 50 mg Metoprolol Succinate (Toprol Xl) 50 mg PO BID [facility] Last Admin: 05/29/18 08:39 Dose: 50 mg Minoxidil (Minoxidil) 5 mg PO BID [facility] Last Admin: 05/29/18 08:42 Dose: 5 mg Montelukast Sodium (Singulair) 10 mg PO HS [facility] Last Admin: 05/28/18 21:45 Dose: 10 mg Potassium Chloride (K-Dur 20 Meq Er Tab) 40 meq PO BID [facility] Last Admin: 05/29/18 08:40 Dose: 40 meq Timolol Maleate (Timoptic 0.5% [facility] Soln) 1 drop OU BID [facility] Last Admin: 05/29/18 08:39 Dose: 1 drop Triamterene/HCTZ (Dyazide 25 Mg-37.5 Mg) 2 cap PO DAILY [facility] Last Admin: 05/29/18 08:41 Dose: 2 cap - Labs Labs: 05/28/18 04:20 05/29/18 04:20 PT 17.2 Seconds (9.8-13.1) H D 05/24/18 05:25 INR 1.5 (0.9-1.2) H D 05/24/18 05:25 APTT 63.7 Seconds (25.6-37.1) H D 05/24/18 09:00 - Respiratory Exam Respiratory Exam: Decreased Breath Sounds - Cardiovascular Exam Cardiovascular Exam: Irregular Rhythm, +S1, +S2 - Extremities Exam Extremities Exam: Pedal Edema - Additional Findings Additional findings: BP146/103 RENAL US AND ABDOMEN AND PELVIC CT WITH KIDNEY LESIONS LUNG V/Q SCAN DONE YESTERDAY WITH LOW PROBABILITY OF PULMONARY EMBOLI(DONE 6 DAYS AFTER 05/22/18 CT AND AFTER TREATMENT WITH IV HEPARIN AND ELIQUIS) Assessment and Plan - Assessment and Plan (Free Text) Assessment: PULMONARY EMBOLUS CLINICALLY AND ON CT 05/22/18 CAD HYPERTENSION COPD KIDNEY LESIONS Plan: PATIENT DISCUSSED WITH RESIDENTS AND NURSE AND DR NOLASCO WILL BE ASKED TO REEVALUATE CONTINUE METOPROLOL, MINOXIDIL AND ELIQUIS WILL INCREASE LOSARTAN TO 100 MGS DAILY DIASTOLIC BP IS STILL HIGH
--- NOTE | 2018-05-29 10:46 | CP.PCM.PN ---
Subjective - Date & Time of Evaluation Date of Evaluation: 05/29/18 Time of Evaluation: 10:46 - Subjective Subjective: The patient was seen on morning rounds and telemetry. He is seated on the edge of the bed and appears comfortable. He denies any chest pain or dyspnea at rest. Ventilation perfusion lung scan was performed yesterday and is reported as low probability, making the diagnosis of chronic thromboembolic pulmonary hypertension unlikely. He appears to be stable taking Eliquis 5 mg by mouth twice a day. His vital signs have been stable although his blood pressure remains moderately elevated. Initial venous duplex scan of the lower extremities show no deep vein thrombosis. Echocardiogram did show right ventricular dysfunction and pulmonary hypertension. On physical examination the lower extremities remain edematous, significantly more so the right than the left. The neck is supple and the trachea is midline. There is no palpable lymphadenopathy. There is no dullness on chest percussion. Breath sounds are diminished bilaterally, equally. No rales or wheezes are heard. No bronchial breathing or egophony. Agree with current management. Patient is awaiting revisited by hematology for further blood work. He may be discharged home on his present medication from a pulmonary standpoint. Objective - Vital Signs/Intake and Output Vital Signs (last 24 hours): Temp Pulse Resp BP Pulse Ox 97.5 F L 81 20 146/103 H 100 05/29/18 07:48 05/29/18 08:41 05/29/18 07:48 05/29/18 08:41 05/29/18 07:48 - Medications Medications: Current Medications Albuterol/Ipratropium (Duoneb 3 Mg/0.5 Mg (3 Ml) Ud) 3 ml INH RQ4 PRN PRN Reason: Shortness of Breath Last Admin: 05/23/18 11:49 Dose: 3 ml Alprazolam (Xanax) 0.5 mg PO TID PRN PRN Reason: Anxiety Last Admin: 05/24/18 00:15 Dose: 0.5 mg Apixaban (Eliquis) 5 mg PO BID [facility] PRN Reason: Protocol Last Admin: 05/29/18 08:43 Dose: 5 mg Brimonidine Tartrate (Alphagan 0.2% Opht) 1 drop OU BID [facility] Last Admin: 05/29/18 08:38 Dose: 1 drop Cholecalciferol (Vitamin D) 2,000 intlu PO DAILY [facility] Last Admin: 05/29/18 08:44 Dose: 2,000 intlu Ferrous Sulfate (Feosol) 325 mg PO BID [facility] Last Admin: 05/29/18 08:38 Dose: 325 mg Finasteride (Proscar) 5 mg PO HS [facility] Last Admin: 05/28/18 21:45 Dose: 5 mg Folic Acid (Folic Acid) 1 mg PO DAILY [facility] Last Admin: 05/29/18 08:43 Dose: 1 mg Home Med (Linaclotide [Linzess]) 145 mcg PO DAILY PRN PRN Reason: Constipation Lactulose (Enulose) 20 gm PO BID [facility] Last Admin: 05/29/18 08:38 Dose: 20 gm Latanoprost (Xalatan Opht) 1 drop OU HS [facility] Last Admin: 05/28/18 21:45 Dose: 1 drop Losartan Potassium (Cozaar) 50 mg PO BID [facility] Last Admin: 05/29/18 08:41 Dose: 50 mg Metoprolol Succinate (Toprol Xl) 50 mg PO BID [facility] Last Admin: 05/29/18 08:39 Dose: 50 mg Minoxidil (Minoxidil) 5 mg PO BID [facility] Last Admin: 05/29/18 08:42 Dose: 5 mg Montelukast Sodium (Singulair) 10 mg PO HS [facility] Last Admin: 05/28/18 21:45 Dose: 10 mg Potassium Chloride (K-Dur 20 Meq Er Tab) 40 meq PO BID [facility] Last Admin: 05/29/18 08:40 Dose: 40 meq Timolol Maleate (Timoptic 0.5% Oph Soln) 1 drop OU BID [facility] Last Admin: 05/29/18 08:39 Dose: 1 drop Triamterene/HCTZ (Dyazide 25 Mg-37.5 Mg) 2 cap PO DAILY [facility] Last Admin: 05/29/18 08:41 Dose: 2 cap - Labs Labs: 05/28/18 04:20 05/29/18 04:20 PT 17.2 Seconds (9.8-13.1) H D 05/24/18 05:25 INR 1.5 (0.9-1.2) H D 05/24/18 05:25 APTT 63.7 Seconds (25.6-37.1) H D 05/24/18 09:00
[2018-05-29] MEDS: Latanoprost 0.005% Opht SOUTION OU SCH (21:38)
[2018-05-29] MEDS ORDERED: Labetalol 5 mg/ml Inj 20ML IVP STA (23:53)
--- NOTE | 2018-05-30 08:22 | CP.PCM.PN ---
Subjective - Date & Time of Evaluation Date of Evaluation: 05/30/18 Time of Evaluation: 07:20 - Subjective Subjective: NO CHEST PAIN BREATHING BETTER Objective - Vital Signs/Intake and Output Vital Signs (last 24 hours): Temp Pulse Resp BP Pulse Ox 97.8 F 94 H 18 145/97 H 100 05/30/18 05:12 05/30/18 05:12 05/30/18 05:12 05/30/18 05:12 05/30/18 05:12 - Medications Medications: Current Medications Albuterol/Ipratropium (Duoneb 3 Mg/0.5 Mg (3 Ml) Ud) 3 ml INH RQ4 PRN PRN Reason: Shortness of Breath Last Admin: 05/23/18 11:49 Dose: 3 ml Apixaban (Eliquis) 5 mg PO BID [facility] PRN Reason: Protocol Last Admin: 05/29/18 16:50 Dose: 5 mg Brimonidine Tartrate (Alphagan 0.2% Opht) 1 drop OU BID [facility] Last Admin: 05/29/18 16:49 Dose: 1 drop Cholecalciferol (Vitamin D) 2,000 intlu PO DAILY [facility] Last Admin: 05/29/18 08:44 Dose: 2,000 intlu Ferrous Sulfate (Feosol) 325 mg PO BID [facility] Last Admin: 05/29/18 16:50 Dose: 325 mg Finasteride (Proscar) 5 mg PO HS [facility] Last Admin: 05/29/18 21:37 Dose: 5 mg Folic Acid (Folic Acid) 1 mg PO DAILY [facility] Last Admin: 05/29/18 08:43 Dose: 1 mg Home Med (Linaclotide [Linzess]) 145 mcg PO DAILY PRN PRN Reason: Constipation Lactulose (Enulose) 20 gm PO BID [facility] Last Admin: 05/29/18 16:49 Dose: 20 gm Latanoprost (Xalatan Opht) 1 drop OU HS [facility] Last Admin: 05/29/18 21:38 Dose: 1 drop Losartan Potassium (Cozaar) 100 mg PO DAILY [facility] Metoprolol Succinate (Toprol Xl) 50 mg PO BID [facility] Last Admin: 05/29/18 16:51 Dose: 50 mg Minoxidil (Minoxidil) 5 mg PO BID [facility] Last Admin: 05/29/18 16:49 Dose: 5 mg Montelukast Sodium (Singulair) 10 mg PO HS [facility] Last Admin: 05/29/18 21:37 Dose: 10 mg Potassium Chloride (K-Dur 20 Meq Er Tab) 40 meq PO BID [facility] Last Admin: 05/29/18 16:49 Dose: 40 meq Timolol Maleate (Timoptic 0.5% Ophth Soln) 1 drop OU BID [facility] Last Admin: 05/29/18 16:49 Dose: 1 drop Triamterene/HCTZ (Dyazide 25 Mg-37.5 Mg) 2 cap PO DAILY [facility] Last Admin: 05/29/18 08:41 Dose: 2 cap - Labs Labs: 05/28/18 04:20 05/29/18 04:20 PT 17.2 Seconds (9.8-13.1) H D 05/24/18 05:25 INR 1.5 (0.9-1.2) H D 05/24/18 05:25 APTT 63.7 Seconds (25.6-37.1) H D 05/24/18 09:00 - Respiratory Exam Respiratory Exam: Decreased Breath Sounds - Cardiovascular Exam Cardiovascular Exam: REGULAR RHYTHM, +S1, +S2 - Extremities Exam Extremities Exam: Pedal Edema Assessment and Plan - Assessment and Plan (Free Text) Assessment: PULMONARY EMBOLUS ATRIAL FIBRILLATION CAD HYPERTENSION COPD Plan: CONTINUE METOPROLOL, LOSARTAN, MINOXIDIL, ELIQUIS HEMATOLOGY FOLLOW UP
[2018-05-30 08:29] VITALS: BP 143/91; RESP 20; TEMP 97.5
[2018-05-30] MEDS: Potassium Chloride 20 mEq ER Tab PO SCH (08:46)
[2018-05-30] MEDS: Metoprolol Succinate 50 mg XL Tab PO SCH (08:47)
[2018-05-30] MEDS: hydroCHLOROthiazide-Triamterene 25 mg-37.5 mg Cap UD PO SCH (08:47)
[2018-05-30] MEDS: Cholecalciferol 1,000 INTLU TAB PO SCH (08:48)
[2018-05-30] MEDS: Brimonidine 0.2% 50 DROP/5 ML BOTTLE OU SCH (08:48)
[2018-05-30 10:18] LABS: HEMOGLOBIN 10.8 g/dL (12.0-18.0); MEAN CORPUSCULAR HEMOGLOBIN 29.6 pg (27.0-31.0); MEAN CORPUSCULAR HGB CONC 32.8 g/dL (33.0-37.0); RBC 3.65 Mil/uL (4.40-5.90); WHITE BLOOD COUNT 4.4 K/uL (4.8-10.8)
--- NOTE | 2018-05-30 10:23 | CP.PCM.PN ---
Subjective - Date & Time of Evaluation Date of Evaluation: 05/30/18 Time of Evaluation: 10:22 - Subjective Subjective: Appears comfortable. Doing well on current regimen. Coag workup bloods have been drawn this morning. He seems to be stable for discharge home. Objective - Vital Signs/Intake and Output Vital Signs (last 24 hours): Temp Pulse Resp BP Pulse Ox 97.5 F L 80 20 143/91 H 97 05/30/18 08:28 05/30/18 08:28 05/30/18 08:28 05/30/18 08:28 05/30/18 08:28 - Medications Medications: Current Medications Albuterol/Ipratropium (Duoneb 3 Mg/0.5 Mg (3 Ml) Ud) 3 ml INH RQ4 PRN PRN Reason: Shortness of Breath Last Admin: 05/23/18 11:49 Dose: 3 ml Apixaban (Eliquis) 5 mg PO BID [facility] PRN Reason: Protocol Last Admin: 05/30/18 08:48 Dose: 5 mg Brimonidine Tartrate (Alphagan 0.2% Opht) 1 drop OU BID [facility] Last Admin: 05/30/18 08:48 Dose: 1 drop Cholecalciferol (Vitamin D) 2,000 intlu PO DAILY [facility] Last Admin: 05/30/18 08:48 Dose: 2,000 intlu Ferrous Sulfate (Feosol) 325 mg PO BID [facility] Last Admin: 05/30/18 08:49 Dose: 325 mg Finasteride (Proscar) 5 mg PO HS [facility] Last Admin: 05/29/18 21:37 Dose: 5 mg Folic Acid (Folic Acid) 1 mg PO DAILY [facility] Last Admin: 05/30/18 08:47 Dose: 1 mg Home Med (Linaclotide [Linzess]) 145 mcg PO DAILY PRN PRN Reason: Constipation Lactulose (Enulose) 20 gm PO BID [facility] Last Admin: 05/30/18 08:49 Dose: 20 gm Latanoprost (Xalatan Opht) 1 drop OU HS [facility] Last Admin: 05/29/18 21:38 Dose: 1 drop Losartan Potassium (Cozaar) 100 mg PO DAILY [facility] Last Admin: 05/30/18 08:47 Dose: 100 mg Metoprolol Succinate (Toprol Xl) 50 mg PO BID [facility] Last Admin: 05/30/18 08:47 Dose: 50 mg Minoxidil (Minoxidil) 5 mg PO BID [facility] Last Admin: 05/30/18 08:47 Dose: 5 mg Montelukast Sodium (Singulair) 10 mg PO HS [facility] Last Admin: 05/29/18 21:37 Dose: 10 mg Potassium Chloride (K-Dur 20 Meq Er Tab) 40 meq PO BID [facility] Last Admin: 05/30/18 08:46 Dose: 40 meq Timolol Maleate (Timoptic 0.5% [facility]) 1 drop OU BID [facility] Last Admin: 05/30/18 08:49 Dose: 1 drop Triamterene/HCTZ (Dyazide 25 Mg-37.5 Mg) 2 cap PO DAILY [facility] Last Admin: 05/30/18 08:47 Dose: 2 cap - Labs Labs: 05/28/18 04:20 05/29/18 04:20 PT 17.2 Seconds (9.8-13.1) H D 05/24/18 05:25 INR 1.5 (0.9-1.2) H D 05/24/18 05:25 APTT 63.7 Seconds (25.6-37.1) H D 05/24/18 09:00
[2018-05-30 10:37] VITALS: PULSE 110
[2018-05-30 10:39] LABS: ALB/GLOB RATIO 1.2 (1.0-2.1); ALBUMIN 4.5 g/dL (3.5-5.0); ALT/SGPT 24 U/L (21-72); AST/SGOT 27 U/L (17-59); BLOOD UREA NITROGEN 14 mg/dl (9-20); CALCIUM 9.3 mg/dL (8.4-10.2); GFR AFRICAN-AMERICAN > 60; GFR NON-AFRICAN AMERICAN > 60
[2018-05-30 10:54] LABS: INR 1.3 (0.9-1.2); PARTIAL THROMBOPLASTIN TIME 37.6 Seconds (25.6-37.1); PROTHROMBIN TIME 14.8 Seconds (9.8-13.1)
--- NOTE | 2018-05-30 11:51 | CP.PCM.DIS ---
Provider - Provider Date of Admission: 05/22/18 17:43 Attending physician: Juliocesar Calix MD Primary care physician: Dr. Calix Time Spent in preparation of Discharge (in minutes): 15 Diagnosis - Discharge Diagnosis (1) Pulmonary embolism Status: Acute (2) A-fib Status: Chronic (3) HTN (hypertension) Status: Acute Priority: Medium Hospital Course - Lab Results Lab Results: Most Recent Lab Values WBC 4.4 K/uL (4.8-10.8) L 05/30/18 10:06 RBC 3.65 Mil/uL (4.40-5.90) L 05/30/18 10:06 Hgb 10.8 g/dL (12.0-18.0) L 05/30/18 10:06 Hct 32.9 % (35.0-51.0) L 05/30/18 10:06 MCV 90.0 fl (80.0-94.0) 05/30/18 10:06 MCH 29.6 pg (27.0-31.0) 05/30/18 10:06 MCHC 32.8 g/dL (33.0-37.0) L 05/30/18 10:06 RDW 17.0 % (11.5-14.5) H 05/30/18 10:06 Plt Count 186 K/uL (130-400) 05/30/18 10:06 MPV 10.0 fl (7.2-11.7) 05/23/18 05:00 Neut % (Auto) 57.5 % (50.0-75.0) 05/23/18 05:00 Lymph % (Auto) 29.9 % (20.0-40.0) 05/23/18 05:00 Williamson % (Auto) 10.4 % (0.0-10.0) H 05/23/18 05:00 Eos % (Auto) 1.4 % (0.0-4.0) 05/23/18 05:00 Baso % (Auto) 0.8 % (0.0-2.0) 05/23/18 05:00 Neut # (Auto) 2.1 K/uL (1.8-7.0) 05/23/18 05:00 Lymph # (Auto) 1.1 K/uL (1.0-4.3) 05/23/18 05:00 Williamson # (Auto) 0.4 K/uL (0.0-0.8) 05/23/18 05:00 Eos # (Auto) 0.0 K/uL (0.0-0.7) 05/23/18 05:00 Baso # (Auto) 0.0 K/uL (0.0-0.2) 05/23/18 05:00 Retic Count 1.9 % (0.5-1.5) H D 05/25/18 06:30 PT 14.8 Seconds (9.8-13.1) H 05/30/18 10:06 INR 1.3 (0.9-1.2) H 05/30/18 10:06 APTT 37.6 Seconds (25.6-37.1) H 05/30/18 10:06 Sodium 141 mmol/l (132-148) 05/30/18 10:06 Potassium 3.4 MMOL/L (3.6-5.0) L 05/30/18 10:06 Chloride 98 mmol/L (98-107) 05/30/18 10:06 Carbon Dioxide 31 mmol/L (22-30) H 05/30/18 10:06 Anion Gap 15 (10-20) 05/30/18 10:06 BUN 14 mg/dl (9-20) 05/30/18 10:06 Creatinine 0.7 mg/dl (0.8-1.5) L 05/30/18 10:06 Est GFR ( Amer) > 60 05/30/18 10:06 Est GFR (Non-Af Amer) > 60 05/30/18 10:06 Random Glucose 120 mg/dL (75-110) H 05/30/18 10:06 Calcium 9.3 mg/dL (8.4-10.2) 05/30/18 10:06 Ferritin 44.8 ng/Ml (17.9-464) 05/25/18 06:30 Total Bilirubin 0.9 mg/dl (0.2-1.3) 05/30/18 10:06 AST 27 U/L (17-59) 05/30/18 10:06 ALT 24 U/L (21-72) 05/30/18 10:06 Alkaline Phosphatase 118 U/L (38-126) 05/30/18 10:06 Troponin I < 0.0120 ng/mL (0.00-0.120) 05/23/18 05:00 NT-Pro-B Natriuret Pep 2630 pg/ml (0-900) H 05/22/18 12:00 Total Protein 8.2 G/DL (6.3-8.2) 05/30/18 10:06 Albumin 4.5 g/dL (3.5-5.0) 05/30/18 10:06 Globulin 3.8 gm/dL (2.2-3.9) 05/30/18 10:06 Albumin/Globulin Ratio 1.2 (1.0-2.1) 05/30/18 10:06 Vitamin B12 996 pg/mL (239-931) H 05/25/18 06:30 Folate > 20.0 ng/mL 05/25/18 06:30 - Hospital Course Hospital Course: 72 y/o M with extensive cardiac history including HTN, CAD, Aortic aneurysm valve repair, Afib (on warfarin 7.5 mg PO daily with theraputic INR), S/P cardiac ablation, Pacemaker, Sleep apnea(On CPAP at home) presents to ED sent by Orthopedics for evaluation of RLE edema, dyspenes on exertion. Labs, CT chest , LE ultrasound, V/Q scan, EKG and Echocardiogram were ordered. Patient was diagnosed with PE and treated with IV heparin followed by Eliquis. 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 Patient's symptoms improved. Cleared by Dr. Garcia, Dr. Kaur and Dr. Read. F/U as an outpatient. Discharge medication Apixaban [Eliquis] 5 mg PO BID #60 tab Bimatoprost [Lumigan] 1 drop EACHEYE HS #1 bottle Brimonidine 0.2% [Alphagan 0.2% Opht] 1 drop OU BID #1 bottle Cholecalciferol [Vitamin D 1000 IU] 2,000 unit PO DAILY #30 tab Finasteride [Proscar] 5 mg PO HS #30 tab Linaclotide [Linzess] 145 mcg PO PRN PRN #30 capsule Losartan [Cozaar] 100 mg PO DAILY #30 tab metFORMIN [glucOPHAGE] 500 mg PO BID #60 tab Metoprolol Succinate 50 mg PO BID #60 tab.er.24h Minoxidil 5 mg PO BID #60 tab Montelukast [Singulair] 10 mg PO HS #30 tab Triamterene/Hydrochlorothiazid [Triamterene-Hctz 37.5-25 mg Cp] 2 each PO DAILY #[address] Chest: Acute pulmonary embolism in the right lower lobe pulmonary artery. Right lung base consolidation may represent atelectasis. Cardiomegaly. Findings suggestive of right heart dysfunction. 5 millimeter right lower lobe pulmonary nodule. Preliminary report was submitted by virtual Radiology. V/Q scan: Lowprobability ventilation perfusion scan for pulmonary embolism. Discharge Exam - Head Exam Head Exam: ATRAUMATIC, NORMAL INSPECTION, NORMOCEPHALIC - Eye Exam Eye Exam: EOMI, Normal appearance - ENT Exam ENT Exam: Mucous Membranes Moist, Normal Exam - Neck Exam Neck exam: Full Rom - Respiratory Exam Respiratory Exam: Clear to PA & Lateral, NORMAL BREATHING PATTERN. absent: Rales, Rhonchi, Wheezes, Respiratory Distress - Cardiovascular Exam Cardiovascular Exam: REGULAR RHYTHM, +S1, +S2. absent: Systolic Murmur - GI/Abdominal Exam GI & Abdominal Exam: Normal Bowel Sounds, Soft, Unremarkable. absent: Tenderness - Neurological Exam Neurological exam: Alert, Oriented x3 - Psychiatric Exam Psychiatric exam: Normal Affect, Normal Mood - Skin Skin Exam: Dry, Intact, Normal Color, Warm Discharge Plan - Discharge Medications Prescriptions: Apixaban [Eliquis] 5 mg PO BID #60 tablet Apixaban [Eliquis] 5 mg PO BID #30 tab Bimatoprost [Lumigan] 1 drop EACHEYE HS #1 bottle Brimonidine 0.2% [Alphagan 0.2% Opht] 1 drop OU BID #1 bottle Cholecalciferol [Vitamin D 1000 IU] 2,000 unit PO DAILY #30 tab Finasteride [Proscar] 5 mg PO HS #30 tab Linaclotide [Linzess] 145 mcg PO PRN PRN #30 capsule PRN Reason: Constipation Losartan [Cozaar] 100 mg PO DAILY #30 tab metFORMIN [glucOPHAGE] 500 mg PO BID #60 tab Metoprolol Succinate 50 mg PO BID #60 tab.er.24h Minoxidil 5 mg PO BID #60 tab Montelukast [Singulair] 10 mg PO HS #30 tab Triamterene/Hydrochlorothiazid [Triamterene-Hctz 37.5-25 mg Cp] 2 each PO DAILY #60 capsule - Follow Up Plan Condition: FAIR Disposition: HOME/ ROUTINE Patient education suggested?: Yes Instructions: Hypertension (DC), Hypertension (GEN) Additional Instructions: -Continue Eliquis 5 mg PO -Continue medications as prescribed. -F/U with specialist outpatient. Referrals: Joselo Reyes MD [Staff Provider] - Dagoberto Garcia MD [Staff Provider] - Jef Hylton MD [Medical Doctor] -
[2018-05-31 08:16] VITALS: O2SAT 98
== END 2018-05-30 13:04 | disposition home or self-care (01) | DRG 176 ==
LOC: H.ER 11:03 → H.ERHOLD 17:43 → H.TEL 21:21
PROVIDERS: ADMIT Family Medicine; ATTEND Family Medicine
DX: I26.99 Other pulmonary embolism without acute cor pulmonale (principal); D68.9 Coagulation defect, unspecified; J98.11 Atelectasis; I27.20 Pulmonary hypertension, unspecified; I11.0 Hypertensive heart disease with heart failure; I50.9 Heart failure, unspecified; I48.2 Chronic atrial fibrillation; D69.6 Thrombocytopenia, unspecified; E11.9 Type 2 diabetes mellitus without complications; D64.9 Anemia, unspecified; I25.10 Atherosclerotic heart disease of native coronary artery without angina pectoris; E87.6 Hypokalemia; R91.1 Solitary pulmonary nodule; J44.9 Chronic obstructive pulmonary disease, unspecified; G47.30 Sleep apnea, unspecified; N40.0 Benign prostatic hyperplasia without lower urinary tract symptoms; M17.11 Unilateral primary osteoarthritis, right knee; N28.9 Disorder of kidney and ureter, unspecified; Z95.2 Presence of prosthetic heart valve; Z95.0 Presence of cardiac pacemaker; Z95.1 Presence of aortocoronary bypass graft; Z79.01 Long term (current) use of anticoagulants; Z79.84 Long term (current) use of oral hypoglycemic drugs; Z87.891 Personal history of nicotine dependence